=== PATIENT | female | born 1955 | race Caucasian/White ===

== ENCOUNTER 2017-04-13 23:07 | Observation (INO) | payer MEDICARE, MEDICAID ==
[~2017-04-13] VITALS: Ht 157.5 cm; Wt 126.0 kg
[~2017-04-13 23:07] MED LIST: ABILIFY5 MG PO; ADDERALL10 MG PO; BUPROPION300 MG PO; CALCIUM500 M1 OR; CIPROFLOXACN500 MG PO; FISH OIL300 MG OR; FLUOXETINE20 M2 PO; FUROSEMIDE40 MG PO; GLIPIZIDE5 M2 OR; LEVOTHYROXIN112 MC1 PO; METOPROL TAR50 MG PO; NEXIUM40 M1 PO; PROAIR HFA IN; STRESSTABS OR; TRAZODONE HCL100 MG OR; VITAMIN B 12 PO; ZOFRAN4 MG PO
[2017-04-13] MEDS ORDERED: CLONAZEPAM1 M1 PO (23:26)
[2017-04-13] MEDS ORDERED: GABAPENTIN400 M2 PO (23:30)
[2017-04-13] MEDS ORDERED: TIZANIDINE HCL4 MG PO (23:30)
--- NOTE | 2017-04-13 23:30 | NUR ---
EMS IV TO LAC REMOVED AT THIS TIME DUE TO LINE NON-FUNCTIONAL. BLEEDING CONTROLLED, DRESSING APPLIED.
[2017-04-13] MEDS ORDERED: PERCOCET 10/31 COMBO PO (23:31)
[2017-04-13] MEDS ORDERED: BUPROPION HCL300 MG PO (23:35)
[2017-04-13] MEDS ORDERED: PANTOPRAZOLE SO40 M1 PO (23:35)
[2017-04-13] MEDS ORDERED: TRAZODONE50 MG PO (23:36)
[2017-04-13] MEDS ORDERED: LANTUS SOL100 UNIT/M SC (23:37)
[2017-04-13] MEDS ORDERED: NOVOLOG FL100 UNIT/M (23:37)
[2017-04-13 23:50] LABS: HEMATOCRIT 39.1 % (37.0-47.0); HEMOGLOBIN 12.3 g/dl (12.0-16.0); IMMATURE GRANULOCYTES 0.1 % (0.0-1.0); MEAN CELL VOLUME 84.4 fL CALC (80.0-100.0); MEAN CORPUSCULAR HGB 26.6 pG CALC (26.0-32.0); MEAN CORPUSCULAR HGB CONC 31.5 g/L CALC (32.0-36.0); NEUT# 4.1 thou/uL (2.00-7.15); RED BLOOD COUNT 4.63 mill/uL (4.20-5.60); RED CELL DISTRI WIDTH 14.8 % (11.5-15.5)
--- NOTE | 2017-04-13 23:51 | NUR ---
DR. HOFFMAN AT BEDSIDE AT THIS TIME TO ASSESS PT.
[2017-04-14 00:10] LABS: ALBUMIN 3.7 g/dL (3.2-5.0); ALKALINE PHOSPHATASE 104 u/l (38-126); AMYLASE 32 u/l (30-110); ANION GAP 17 (6-22 (CALC)); BILIRUBIN, TOTAL 0.3 mg/dL (0.0-1.4); BUN 17 mg/dL (7-17); BUN/CREATININE RATIO 19 (12-20 (CALC)); CALCIUM 9.1 mg/dL (8.4-10.2); CARBON DIOXIDE 28 mmol/l (22-30); CHLORIDE 98 mmol/l (95-108); CREATININE 0.9 mg/dL (0.5-1.0); GFR > 60 ML/MIN (>=60 (CALC)); GFR FOR AFR.AMER. > 60 ML/MIN (>=60 (CALC)); GLUCOSE 225 mg/dL (65-105); LIPASE 132 u/l (23-300); POTASSIUM 3.8 mmol/l (3.5-5.1); SGOT/AST 48 u/l (14-36); SGPT/ALT 45 u/l (9-52); SODIUM 139 mmol/l (137-146)
[2017-04-14 00:22] LABS: MYOGLOBIN 38 ng/mL (0 - 62)
--- NOTE | 2017-04-14 00:25 | NUR ---
PT. STATES WITH MILD PAIN 3/10 AT THIS TIME. SP02 IS 91-93% ON RA. PLACED ON 2L NC. SPO2 INCREASES TO 95-96%.
--- NOTE | 2017-04-14 01:10 | NUR ---
REPORT TO LIYA MENDIETA.
--- NOTE | 2017-04-14 01:20 | NUR ---
PT. TAKEN UP TO MED/SURG AT THIS TIME.
[2017-04-14 01:25] VITALS: BP 159/89
--- NOTE | 2017-04-14 01:25 | NUR ---
PT TRANSFERRED TO FLOOR AT THIS TIME VIA STRETCHER IN STABLE CONDITION ACCOMPANIED BY DWAIN CHACON;PT AMBULATED TO STANDING SCALE AND BEDSIDE WITH WEAK GAIT;VS OBTAINED;PT COMPLAINS OF BACK AND LEG PAIN RATING 4/10 ON THE PAIN SCALE AND REQUEST PRN PAIN MEDICATION;PT TO BE MEDICATED ACCORDINGLY PER MD ORDERS;ASSESSMENT COMPLETED;IV SITE TO RFA FLUSHED AND PATENT;TELE MONITOR IN PLACE;02 ON @ 2 LITERS VIA NC;RESPIRATIONS EVEN AND UNLABORED;PT REPORTS LAST BM ON 04/13;1+ PITTING EDEMA NOTED TO BLE;LEGS ELEVATED WITH A PILLOW AT THIS TIME;CELLULITIS ALSO TO BLE;PT ORIENTED TO ROOM AND CALL LIGHT SYSTEM AND VERBALIZES UNDERSTANDING;PT DENIES ANY OTHER NEEDS AT THIS TIME;PT EDUCATED TO CALL FOR ASSISTANCE IF NEEDED;SAFETY PRECAUTIONS REINFORCED;BED IN LOWEST POSITION WITH CALL LIGHT IN REACH;WILL CONTINUE TO MONITOR
[2017-04-14 03:25] VITALS: BP 145/80
--- NOTE | 2017-04-14 05:53 | NUR ---
PT RESTING AT BEDSIDE AT THIS TIME;PT DENIES ANY PAINS OR DISCOMFORTS;02 ON @ 2 LITERS VIA NC,RESPIRATIONS EVEN AND UNLABORED;PT REPORTS BM,UNABLE TO COLLECT UA AT THIS TIME;TELE MONITOR IN PLACE;PT DENIES ANY OTHER NEEDS;BED IN LOWEST POSITION WITH CALL LIGHT IN REACH;WILL CONTINUE TO MONITOR
[2017-04-14 06:47] LABS: ANION GAP 16 (6-22 (CALC)); BUN 14 mg/dL (7-17); BUN/CREATININE RATIO 17 (12-20 (CALC)); CALCIUM 9.1 mg/dL (8.4-10.2); CALCULATED LDLCHOLESTEROL 79 mg/dL (62-129 (CALC)); CARBON DIOXIDE 29 mmol/l (22-30); CHLORIDE 100 mmol/l (95-108); CREATININE 0.8 mg/dL (0.5-1.0); GFR > 60 ML/MIN (>=60 (CALC)); GFR FOR AFR.AMER. > 60 ML/MIN (>=60 (CALC)); GLUCOSE 227 mg/dL (65-105); HDL CHOLESTEROL 40 mg/dL (>=40); MAGNESIUM 1.9 mg/dL (1.6-2.3); POTASSIUM 4.1 mmol/l (3.5-5.1); SODIUM 140 mmol/l (137-146); TOTAL CHOLESTEROL 178 mg/dl (0-199); TRIGLYCERIDES REFLEX TO dLDL 295 mg/dl (30-149); VLDL CHOLESTROL 59 mg/dl (2-49 (CALC))
--- NOTE | 2017-04-14 07:00 | NUR ---
RECEIVED CARMEN ZAPATA FROM [facility]. RESTING IN BED WITH EYES CLOSED, AWAKENS EASILY. RESPS EVEN AND UNLABORED ON ROOM AIR, TELE MONITOR IN PLACE. BILAT LOWER EXTREMITIES MILDLY RED ELEVATED ON PILLOW, DENIES PAIN OR DISCOMFORT. PLAN OF CARE DISCUSSED. SAFETY PRECAUTIONS REINFORCED. BED IN LOWEST POSITION WITH WHEELS LOCKED. CALL LIGHT WITHIN REACH. WILL CONTINUE TO MONITOR.
[2017-04-14 07:59] VITALS: BP 135/75
--- NOTE | 2017-04-14 08:10 | NUR ---
AM MEDICATIONS ADMINISTERED. REFUSES FLUOXETINE, REPORTS SHE NO LONGER TAKES THIS MEDICATION SHE NOW TAKES WELLBUTRIN.
[2017-04-14 11:15] LABS: BARBITURATES NEGATIVE (NEGATIVE); COCAINE NEGATIVE (NEGATIVE); METHADONE NEGATIVE (NEGATIVE); OXCYCODONE POSITIVE (NEGATIVE); TETRAHYDROCANNABIONOL NEGATIVE (NEGATIVE); TRICYLIC ANTIDEPRESSANTS NEGATIVE (NEGATIVE)
--- NOTE | 2017-04-14 13:55 | NUR ---
DR ROSARIO IN TO SEE PT, NEW ORDERS RECEIVED.
[2017-04-14] MEDS ORDERED: DOXYCYCL HYC100 MG PO (13:58)
[2017-04-14 14:50] VITALS: BP 153/94
--- NOTE | 2017-04-14 15:40 | NUR ---
Discharge instructions given. Patient verbalizes understanding of same. Discharged in stable condition via Wheelchair to Home with family. All belongings sent with pt.
[2017-04-14] MEDS ORDERED: ASPIRIN ADULT L81 M2 PO (16:14)
== END 2017-04-14 15:41 | disposition home or self-care (01) ==
LOC: ENPENDDIS → ED 23:07 → ED-I 04-14 00:18 → ED 04-14 00:31 → MS2 04-14 00:32
PROVIDERS: Emergency Medicine; ADMIT Internal Medicine; ATTEND Internal Medicine
DX: R07.89 Other chest pain (principal); E11.65 Type 2 diabetes mellitus with hyperglycemia; I10 Essential (primary) hypertension; M79.7 Fibromyalgia; F41.9 Anxiety disorder, unspecified; F32.9 Major depressive disorder, single episode, unspecified; R60.0 Localized edema; R06.02 Shortness of breath; Z79.4 Long term (current) use of insulin; Z79.899 Other long term (current) drug therapy

== ENCOUNTER 2017-12-28 20:43 | Emergency (ER) | payer MEDICARE, MEDICAID ==
[~2017-12-28] VITALS: Ht 157.5 cm; Wt 115.0 kg
[~2017-12-28 20:43] MED LIST changes: +ASPIRIN ADULT L81 M2 PO; +BUPROPION HCL300 MG PO; +CLONAZEPAM1 M1 PO; +DOXYCYCL HYC100 MG PO; +GABAPENTIN400 M2 PO; +LANTUS SOL100 UNIT/M SC; +NOVOLOG FL100 UNIT/M; +PANTOPRAZOLE SO40 M1 PO; +PERCOCET 10/31 COMBO PO; +TIZANIDINE HCL4 MG PO; +TRAZODONE50 MG PO
[2017-12-28] MEDS ORDERED: MEDDOSEPAK PO (23:20)
[2017-12-28 23:36] VITALS: BP 133/72
== END 2017-12-28 23:36 | disposition home or self-care (01) ==
LOC: ED 20:43
DX: G89.29 Other chronic pain (principal); M54.5 Low back pain

== ENCOUNTER 2018-02-24 12:18 | Emergency (ER) | payer MEDICARE, MEDICAID ==
[~2018-02-24] VITALS: Ht 157.5 cm; Wt 97.7 kg
[~2018-02-24 12:18] MED LIST changes: +MEDDOSEPAK PO
[2018-02-24 13:21] LABS: HEMATOCRIT 40.4 % (37.0-47.0); HEMOGLOBIN 13.2 g/dl (12.0-16.0); IMMATURE GRANULOCYTES 0.2 % (0.0-1.0); MEAN CELL VOLUME 84.5 fL CALC (80.0-100.0); MEAN CORPUSCULAR HGB 27.6 pG CALC (26.0-32.0); MEAN CORPUSCULAR HGB CONC 32.7 g/L CALC (32.0-36.0); NEUT# 5.52 thou/uL (2.00-7.15); RED BLOOD COUNT 4.78 mill/uL (4.20-5.60); RED CELL DISTRI WIDTH 14.3 % (11.5-15.5)
[2018-02-24 13:31] LABS: ANION GAP 20 (6-22 (CALC)); BUN 14 mg/dL (7-17); BUN/CREATININE RATIO 17 (12-20 (CALC)); CARBON DIOXIDE 28 mmol/l (22-30); CHLORIDE 94 mmol/l (95-108); CREATININE 0.8 mg/dL (0.5-1.0); GFR > 60 ML/MIN (>=60 (CALC)); GFR FOR AFR.AMER. > 60 ML/MIN (>=60 (CALC)); LIPASE 123 u/l (23-300); POTASSIUM 4.1 mmol/l (3.5-5.1); SODIUM 139 mmol/l (137-146)
[2018-02-24 13:52] LABS: URINE BILIRUBIN - DIPSTICK NEGATIVE (NEGATIVE); URINE BLOOD DIPSTICK TRACE-INTACT (NEGATIVE); URINE COLOR YELLOW; URINE GLUCOSE - DIPSTICK >=1000 mg/dL (NEGATIVE); URINE KETONE NEGATIVE (NEGATIVE); URINE LEUK ESTERASE NEGATIVE (NEGATIVE); URINE NITRITE - DIPSTICK NEGATIVE (Negative); URINE PROTEIN - DIPSTICK NEGATIVE (NEG-TRACE); URINE SPECIFIC GRAVITY <=1.005; URINE UROBILINOGEN - DIPSTICK 0.2 E.U./dL (0.2)
[2018-02-24 13:53] LABS: URINE CLARITY CLEAR
[2018-02-24 15:25] VITALS: BP 108/58
== END 2018-02-24 15:25 | disposition home or self-care (01) ==
LOC: ED 12:18
PROVIDERS: Family Medicine
DX: E11.65 Type 2 diabetes mellitus with hyperglycemia (principal); M79.7 Fibromyalgia; I10 Essential (primary) hypertension; F32.9 Major depressive disorder, single episode, unspecified; F43.10 Post-traumatic stress disorder, unspecified

== ENCOUNTER 2018-11-19 00:05 | Inpatient (IN) | payer MEDICARE, MEDICAID ==
[~2018-11-19] VITALS: Ht 157.5 cm; Wt 111.0 kg
[~2018-11-19 00:05] MED LIST changes: -NOVOLOG FL100 UNIT/M; +NOVOLOG FL100 UNIT/M SC
--- NOTE | 2018-11-19 00:05 | NUR ---
PT TO ROOM 9 BY EMS FOR UPPER ABDOMINAL PAIN
[2018-11-19] MEDS ORDERED: FLEXERIL5 MG PO (00:25)
[2018-11-19] MEDS ORDERED: TALTZ80 MG/M1 SC (00:50)
[2018-11-19 01:03] LABS: HEMATOCRIT 39.6 % (37.0-47.0); HEMOGLOBIN 12.4 g/dl (12.0-16.0); IMMATURE GRANULOCYTES 0.3 % (0.0-5.0); MEAN CELL VOLUME 82.8 fL CALC (80.0-100.0); MEAN CORPUSCULAR HGB 25.9 pG CALC (26.0-32.0); MEAN CORPUSCULAR HGB CONC 31.3 g/L CALC (32.0-36.0); NEUT# 9.44 thou/uL (2.00-7.15); RED BLOOD COUNT 4.78 mill/uL (4.20-5.60); RED CELL DISTRI WIDTH 15.4 % (11.5-15.5)
[2018-11-19 01:04] LABS: URINE BILIRUBIN - DIPSTICK NEGATIVE (NEGATIVE); URINE BLOOD DIPSTICK TRACE-INTACT (NEGATIVE); URINE COLOR YELLOW; URINE GLUCOSE - DIPSTICK NEGATIVE (NEGATIVE); URINE KETONE NEGATIVE (NEGATIVE); URINE LEUK ESTERASE MODERATE (NEGATIVE); URINE NITRITE - DIPSTICK NEGATIVE (Negative); URINE PROTEIN - DIPSTICK 30 mg/dL (NEG-TRACE); URINE UROBILINOGEN - DIPSTICK 0.2 E.U./dL (0.2)
[2018-11-19 01:05] LABS: URINE BACTERIA FEW hpf; URINE EPITHELIAL CELLS MODERATE EPI/hpf (0-FEW); URINE RBC 0-2 RBC/hpf (0-5)
--- NOTE | 2018-11-19 01:09 | NUR ---
BLOOD AND URINE IN PROGRESS, XRAY TAKEN AT BEDSIDE AND PT MEDICATED PER ORDER. WAITING ON RESULTS. PT DID STATE IT HURTS WHEN SHE URINATES. NOT BURN BUT PAINFUL. PT STATES SHE THINKS IT IS A SIDE EFFECT OF THE TALTZ MEDICATION SHE IS TAKING. DAUGHTER TOLD PT THE SYMPTOMS PT IS HAVING NOW ARE ALSO SIDE EFFECTS. PT'S DAUGHTER HAS TALTZ MEDICATION PAMPHLET AND SHE IS READING IT.
[2018-11-19 01:16] LABS: ALBUMIN 3.9 g/dL (3.2-5.0); ALKALINE PHOSPHATASE 101 u/l (38-126); AMYLASE 46 u/l (30-110); ANION GAP 16 (6-22 (CALC)); BILIRUBIN, TOTAL 0.5 mg/dL (0.0-1.4); BUN 13 mg/dL (8-23); BUN/CREATININE RATIO 19 (12-20 (CALC)); CARBON DIOXIDE 28 mmol/l (22-30); CHLORIDE 99 mmol/l (95-108); CREATININE 0.7 mg/dL (0.5-1.0); GFR > 60 ML/MIN (>=60 (CALC)); GFR FOR AFR.AMER. > 60 ML/MIN (>=60 (CALC)); LIPASE 86 u/l (23-300); POTASSIUM 4.2 mmol/l (3.5-5.1); SGOT/AST 38 u/l (9-36); SODIUM 139 mmol/l (137-146); TOTAL PROTEIN 7.4 g/dL (6.3-8.2)
--- NOTE | 2018-11-19 02:02 | NUR ---
PT ON SECOND DOSE OF CONTRAST. MEDICATED WITH COMPAZINE AND FENTANYL.
--- NOTE | 2018-11-19 02:25 | NUR ---
DAUGHTER CAME OUT STATING PT DRANK LAST OF CONTRAST. CALLED MICHAEL IN CT AND PT WILL GO DOWN IN 1 HOUR
--- NOTE | 2018-11-19 03:25 | NUR ---
PT TOLERATED ALL CONTRAST. WAITING FOR SCAN. TECH BUSY WITH CODE AT THIS TIME.
--- NOTE | 2018-11-19 03:45 | NUR ---
PT TO CT
--- NOTE | 2018-11-19 04:09 | NUR ---
PT BACK FROM CT AND PAIN FREE AT THIS TIME.
--- NOTE | 2018-11-19 04:34 | NUR ---
DR HANCOCK IN TO GO OVER RESULTS.
--- NOTE | 2018-11-19 04:38 | NUR ---
PER DOCTOR KARISSA, PT CHAIN BUILDER LOOM CONTROL WITH PALPATION. CALL OUT TO PT'S SURGEON
--- NOTE | 2018-11-19 05:30 | NUR ---
Admission Note Report Given to: DWAIN PEACE Transported by: Wheelchair X Stretcher Transported with: X Nurse Transporter X Patent IV O2 Transit Operator
--- NOTE | 2018-11-19 05:30 | NUR ---
NGT PLACED-REPORT GIVEN TO DWAIN PEACE. UPON ARRIVING ON FLOOR NATA REQUESTED DR. HANCOCK CHANGE PAIN MEDICATION FROM FENTANYL
[2018-11-19 05:43] VITALS: BP 180/85
--- NOTE | 2018-11-19 06:00 | NUR ---
PATIENT ADMITTED FROM ER VIA STRETCHER WITH ER STAFF IN ATTENDANCE. PATIENT ASSISTED FROM STRETCHER TO BED USING CANE. PATIENT IS AWAKE BUT SOMEWHAT DROWSY FROM ER MEDS. DAUGHTER HE HERE AT BEDSIDE TO ASSIST AND ANSWER QUESTIONS. PATIENT IS ALERT AND ORIENTEDX3. PATIENT STATES THAT SHE WASN'T FEELING WELL YESTERDAY AND LAST NIGHT AFTER EATING SPAGETTI SHE BECAME NAUSEATED AND VOMITTED-PATIENT LIVES WITH ELDERLY MOTHER AND EMS WAS CALLED. ABD IS DISTENDED BUT SOFT WITH ACTIVE BS. LAST BM WAS 11/18 AM. NGTUBE TO LEFT NARE IN PLACE. PLACEMENT WAS CHECKED AND TUBE WAS PLACED ON LIWS-DRAINING SMALL AMT OF BEIGE COLORED FLUID. IV SITE TO LEFT AC INTACT AND IVF LR HUNG AND INFUSING AT 150CC/HR. PATIENT WITH HX OF COLON RESECTION 09/11/18 AT [facility] PER PATIENT DAUGHTER HE. PATIENT WITH 4 SCAR RO ABD FROM SURGERY-HEALING WITH NO S/S OF INFECTION AT THIS TIME. PATIENT WITH H/O MRSA AND SWAB OBTAINED-PATIENT PLACE ON CONTACT FOR H/O MRSA AND PATIENT AND FAMILY INFORMED OF PRECAUTIONS. PATIENT IS NPO AT THIS TIME. PATIENT ORIENTED TO ROOM AND SURROUNDINGS. FALL PRECAUTIONS REVIEWED WITH PATIENT AND FAMILY. INSTRUCTED ON USE OF NURSE CALL LIGHT, TV REMOTE AND TELEPHONE. CALL LIGHT IN REACH. WILL CONT TO MONITOR.
[2018-11-19 06:35] VITALS: BP 174/92
--- NOTE | 2018-11-19 07:00 | NUR ---
PATIENT RESTING IN BED. MEDICATED FOR PAIN AND NAUSEA. MORPHINE 4MG AND ZOFRAN 4MG IVP ORDERED. REPORT GIVEN TO KENNA. CALL LIGHT IN REACH. WILL CONT TO MONITOR.
--- NOTE | 2018-11-19 07:22 | NUR ---
ENTERED ROOM AND INTRODUCED SELF TO PT, NGT TO R NARE TO LIS. NOTED FLUID IN TUBING AND CANISTER; YELLOW WITH FOOD PARTICLES. IVF TO EMS SITE IN LAC INFUSING WITHOUT DIFFICULTIES; NO REDNESS OR IRRITATION NOTED TO SITE. DISCUSSED POC, PT IN AGREEMENT. ASSISTED PT TO BSC VOIDED 200 CLEAR YELLOW URINE. NOTED SMALL AREA TO R HIP NOT OPEN OR DRAINING; REDDENED AND SCABBED. ASSISTED PT BACK IN BED, CALL LIGHT IN REACH,CONTINUE TO MONITOR.
[2018-11-19 08:30] VITALS: BP 165/78
--- NOTE | 2018-11-19 08:52 | NUR ---
PT ASSISTED BACK IN BED FROM [facility], PT HAD A LARGE SOFT BROWN BM WITH SOME WATERY BROWN STOOL WELL. PT IS PASSING GAS. CALL LIGHT IN REACH,CONTINUE TO MONITOR.
--- NOTE | 2018-11-19 09:00 | NUR ---
IN TO SEE PT, DISCUSSED POC, ORDERS TO CHANGE IVF AND START NOVOLOG COVERAGE, WILL KEEP NPO. TO SEE PT, CONSULTED BY .
[2018-11-19 09:34] LABS: HEMATOCRIT 39.2 % (37.0-47.0); HEMOGLOBIN 12.3 g/dl (12.0-16.0); IMMATURE GRANULOCYTES 0.3 % (0.0-5.0); MEAN CELL VOLUME 83.6 fL CALC (80.0-100.0); MEAN CORPUSCULAR HGB 26.2 pG CALC (26.0-32.0); MEAN CORPUSCULAR HGB CONC 31.4 g/L CALC (32.0-36.0); NEUT# 7.61 thou/uL (2.00-7.15); RED BLOOD COUNT 4.69 mill/uL (4.20-5.60); RED CELL DISTRI WIDTH 15.7 % (11.5-15.5)
[2018-11-19 09:53] LABS: ANION GAP 14 (6-22 (CALC)); BUN 14 mg/dL (8-23); BUN/CREATININE RATIO 20 (12-20 (CALC)); CARBON DIOXIDE 28 mmol/l (22-30); CHLORIDE 101 mmol/l (95-108); CREATININE 0.7 mg/dL (0.5-1.0); GFR > 60 ML/MIN (>=60 (CALC)); GFR FOR AFR.AMER. > 60 ML/MIN (>=60 (CALC)); POTASSIUM 4.4 mmol/l (3.5-5.1); SODIUM 139 mmol/l (137-146)
--- NOTE | 2018-11-19 11:10 | NUR ---
TO SEE PT, NEW ORDERS TO DC' NGT AND START CLEAR LIQUID DIET. PT IN AGREEMENT. CALL LIGHT IN REACH,CONTINUE TO MONITOR.
--- NOTE | 2018-11-19 11:25 | NUR ---
ENTERED ROOM WITH LUNCH, DISCUSSED NGT REMOVAL, PT IN AGREEMENT. NGT REMOVED, CATHETER INTACT PT TOLERATED WELL. LUNCH PLACED FOR PT ON TRAY. INSTRUCTED TO CALL IF NEEDED. CALL LIGHT IN REACH,CONTINUE TO MONITOR.
--- NOTE | 2018-11-19 12:59 | NUR ---
PT TOLERATED CLEAR LIQUIDS. NO C/O N/V, CALL LIGHT IN REACH,CONTINUE TO MONITOR.
--- NOTE | 2018-11-19 16:26 | NUR ---
BP 175/76 HR 93, PT C/O PAIN TO L SHOULDER AND ABD 5/10 MEDICATED PT WITH MORPHINE. WELL RETURN TO REASSESS PAIN AND BP. CALL LIGHT IN REACH,CONTINUE TO MONITOR.
[2018-11-19 16:33] VITALS: BP 177/83
[2018-11-19 17:15] VITALS: BP 130/65
[2018-11-19 20:21] VITALS: BP 137/77
--- NOTE | 2018-11-19 21:45 | NUR ---
PT RESTING IN BED WATCHING TV. PT IS PLEASANT C/ O SHOULDER PAIN, MEDICATED PER ORDER. ASSESMENT COMPLETED AT THIS TIME. LUNG SOUNDS DIMINISHED, HEART SOUNDS NORMAL, ACTIVE BOWELS SOUNDS, TRACE EDEMA TO LEGS BILAT. 4 HEALING INSICIONS TO ABD, SMALL SCABBED RED AREA TO HIP, EXCORIATION AND ODOR TO ABD FOLD. IV INFUSING WELL. PT HAS NO OTHER NEEDS AT THIS TIME. CALL DICK IN REACH. WILL CONTINUE TO MONITOR.
[2018-11-20 00:23] VITALS: BP 135/75
--- NOTE | 2018-11-20 03:05 | NUR ---
PT STANDING AT BED SIDE, CANNOT GET COMFORTABLE. OFFERED TO GET INTO THE RECLINER PT ACCEPTS AND APRECIATIVE. PT SETTLED INTO THE RECLINER. NO OTHER COMPLAINTS AT THIS TIME. CALL DICK IN REACH. WILL CONTINUE TO MONITOR.
--- NOTE | 2018-11-20 04:00 | NUR ---
PT UNCOMFORTABLE AND C/O HEADACHE. ICE PACK OFFERED TO PT. LIGHTS DOWN LOW. CALL DICK IN REACH. WILL CONTINUE TO MONITOR.
[2018-11-20 04:58] VITALS: BP 156/92
[2018-11-20 04:58] LABS: HEMOGLOBIN 11.1 g/dl (12.0-16.0); IMMATURE GRANULOCYTES 0.4 % (0.0-5.0); MEAN CELL VOLUME 84.9 fL CALC (80.0-100.0); MEAN CORPUSCULAR HGB 26.2 pG CALC (26.0-32.0); MEAN CORPUSCULAR HGB CONC 30.8 g/L CALC (32.0-36.0); NEUT# 4.72 thou/uL (2.00-7.15); RED BLOOD COUNT 4.24 mill/uL (4.20-5.60); RED CELL DISTRI WIDTH 15.7 % (11.5-15.5)
[2018-11-20 05:28] LABS: ALBUMIN 3.2 g/dL (3.2-5.0); ALKALINE PHOSPHATASE 71 u/l (38-126); ANION GAP 12 (6-22 (CALC)); BILIRUBIN, TOTAL 0.5 mg/dL (0.0-1.4); BUN 10 mg/dL (8-23); BUN/CREATININE RATIO 16 (12-20 (CALC)); CARBON DIOXIDE 28 mmol/l (22-30); CHLORIDE 102 mmol/l (95-108); CREATININE 0.6 mg/dL (0.5-1.0); GFR > 60 ML/MIN (>=60 (CALC)); GFR FOR AFR.AMER. > 60 ML/MIN (>=60 (CALC)); MAGNESIUM 1.9 mg/dL (1.6-2.3); POTASSIUM 4.4 mmol/l (3.5-5.1); SGOT/AST 33 u/l (9-36); SODIUM 137 mmol/l (137-146); TOTAL PROTEIN 6.4 g/dL (6.3-8.2)
[2018-11-20 08:28] VITALS: BP 173/88
--- NOTE | 2018-11-20 08:50 | NUR ---
PT SITTING UP IN BED TRYING TO EAT BREAKFAST;PT A/OX3; PT STATED HER HEAD, STOMACH AND SHOULDER HURTS 9/10 PAIN SCALE; MEDICATED WITH MORPHINE; ASSITED PT TO BSC, PT WALKED WITH STEADY BUT SLOW GAIT; VOIDED 800CC, YELLOW, CLEAR URINE; PT VOICED NO OTHER CONCERNS; POC DISCUSSED; CALL DICK IN REACH; PT INSTRUCTED TO CALL FOR ASSISTEANCE; WILL CONTINUE TO MONITOR.
--- NOTE | 2018-11-20 10:50 | NUR ---
DR LEWIS AT BEDSIDE TO DISCUSS POC
--- NOTE | 2018-11-20 11:10 | NUR ---
PT LAYING IN BED, RESP EVEN AND UNLBORED; STATED THAT THE PAIN MEDICATION HAS HELPED; POSSIBLE DC TODAY; DR LEWIS ORDER IVF STOPPED. CALL DICK IN REACH;
--- NOTE | 2018-11-20 12:40 | NUR ---
PT SITTING UP IN RECLINER TALKING ON THE PHONE; NO S/S OF DISTRESS NOTED; CALL DICK IN REACH.
--- NOTE | 2018-11-20 13:15 | NUR ---
FINISH LAST DOES OF GASTROGRAFIN; PT TOLERATE WELL; VOICE NO CONCERNS; RADIOLOGY INFORMED EXT 440;
--- NOTE | 2018-11-20 14:05 | NUR ---
PT GOING TO CAT/SCAN VIA W/C, ACCOMPANIED BY DIRECTOR HARDWARE, PENA PASS GIVEN TO DIRECTOR HARDWARE.
--- NOTE | 2018-11-20 14:15 | NUR ---
PT BACK FROM TEST VIA W/C ACCOMPANIED BY LANGUAGE PATH; PT STATED HAD MULTIPLE BOWEL MOVEMENTS. NO S/S OF DISTRESS NOTED.
--- NOTE | 2018-11-20 15:43 | NUR ---
PT SITTING UP IN RECLINER; COMPLAINE OF NO PAIN; RESP EVEN AND UNLABORED; NO S/S OF DISTRESS NOTED; PT INDIPENDENT IN ROOM; CALL DICK IN REACH.
[2018-11-20 15:50] VITALS: BP 149/61
[2018-11-20] MEDS ORDERED: TRAMADOL HYDROC50 MG PO (16:07)
--- NOTE | 2018-11-20 16:46 | NUR ---
DC INSTRUCTIONS GIVEN TO PT; PT VERBALIZED UNDERSTANDING; PT WAITING FOR HER RIDE; INSTRUCT PT TO CALL WHEN HER RIDE GETS HERE.
--- NOTE | 2018-11-20 17:27 | NUR ---
Discharge instructions given. Patient verbalizes understanding of same. Discharged in stable condition via Wheelchair to Home with family. All belongings sent with pt.
== END 2018-11-20 17:30 | disposition home or self-care (01) | DRG 390 ==
LOC: ED 00:05 → ED-I 04:41 → ED 04:58 → MS2 04:59
PROVIDERS: Internal Medicine Nephrology; ADMIT Family Medicine; ATTEND Family Medicine
DX: K56.600 Partial intestinal obstruction, unspecified as to cause (principal); I10 Essential (primary) hypertension; M79.7 Fibromyalgia; E03.9 Hypothyroidism, unspecified; I34.1 Nonrheumatic mitral (valve) prolapse; F31.9 Bipolar disorder, unspecified; E11.40 Type 2 diabetes mellitus with diabetic neuropathy, unspecified; K21.9 Gastro-esophageal reflux disease without esophagitis; G58.8 Other specified mononeuropathies; Z79.891 Long term (current) use of opiate analgesic; Z79.4 Long term (current) use of insulin; Z90.49 Acquired absence of other specified parts of digestive tract
CPT/HCPCS: J1650; Q9967

== ENCOUNTER 2018-12-08 08:56 | Emergency (ER) | payer MEDICARE, MEDICAID ==
[~2018-12-08] VITALS: Ht 157.5 cm; Wt 110.0 kg
[~2018-12-08 08:56] MED LIST changes: +FLEXERIL5 MG PO; +TALTZ80 MG/M1 SC; +TRAMADOL HYDROC50 MG PO
[2018-12-08 10:11] LABS: HEMOGLOBIN 12.8 g/dl (12.0-16.0); IMMATURE GRANULOCYTES 0.4 % (0.0-5.0); MEAN CELL VOLUME 83.2 fL CALC (80.0-100.0); MEAN CORPUSCULAR HGB CONC 31.2 g/L CALC (32.0-36.0); NEUT# 7.32 thou/uL (2.00-7.15); RED BLOOD COUNT 4.93 mill/uL (4.20-5.60); RED CELL DISTRI WIDTH 15.6 % (11.5-15.5)
[2018-12-08 10:19] LABS: ALBUMIN 4.2 g/dL (3.2-5.0); ALKALINE PHOSPHATASE 103 u/l (38-126); ANION GAP 18 (6-22 (CALC)); BILIRUBIN, TOTAL 0.4 mg/dL (0.0-1.4); BUN 15 mg/dL (8-23); BUN/CREATININE RATIO 20 (12-20 (CALC)); CARBON DIOXIDE 29 mmol/l (22-30); CHLORIDE 100 mmol/l (95-108); CREATININE 0.8 mg/dL (0.5-1.0); GFR > 60 ML/MIN (>=60 (CALC)); GFR FOR AFR.AMER. > 60 ML/MIN (>=60 (CALC)); POTASSIUM 4.6 mmol/l (3.5-5.1); SGOT/AST 36 u/l (9-36); SODIUM 142 mmol/l (137-146); TOTAL PROTEIN 7.8 g/dL (6.3-8.2)
[2018-12-08 10:59] LABS: URINE BILIRUBIN - DIPSTICK NEGATIVE (NEGATIVE); URINE BLOOD DIPSTICK MODERATE (NEGATIVE); URINE COLOR YELLOW; URINE GLUCOSE - DIPSTICK NEGATIVE (NEGATIVE); URINE KETONE NEGATIVE (NEGATIVE); URINE NITRITE - DIPSTICK NEGATIVE (Negative); URINE PROTEIN - DIPSTICK 100 mg/dL (NEG-TRACE); URINE SPECIFIC GRAVITY 1.025; URINE UROBILINOGEN - DIPSTICK 0.2 E.U./dL (0.2)
[2018-12-08 11:02] LABS: URINE LEUK ESTERASE SMALL (NEGATIVE)
[2018-12-08 11:05] LABS: URINE BACTERIA MANY hpf; URINE EPITHELIAL CELLS MANY EPI/hpf (0-FEW)
[2018-12-08] MEDS ORDERED: HUMALOG KW100 UNIT/M SC (11:19)
[2018-12-08] MEDS ORDERED: TORADOL PO (11:38)
[2018-12-08] MEDS ORDERED: KEFLEX500 M1 PO (11:38)
[2018-12-08] MEDS ORDERED: TAMSULOSIN0.4 MG PO (11:38)
[2018-12-08] MEDS ORDERED: PYRIDIUM200 MG PO (11:38)
[2018-12-08 12:34] VITALS: BP 165/84
== END 2018-12-08 12:35 | disposition home or self-care (01) ==
LOC: ED 08:56 → ED-I 11:18 → ED 12:35
PROVIDERS: Emergency Medicine
DX: N20.0 Calculus of kidney (principal); N39.0 Urinary tract infection, site not specified; B96.4 Proteus (mirabilis) (morganii) as the cause of diseases classified elsewhere; M19.90 Unspecified osteoarthritis, unspecified site; I11.0 Hypertensive heart disease with heart failure; E11.9 Type 2 diabetes mellitus without complications; F31.9 Bipolar disorder, unspecified; E03.9 Hypothyroidism, unspecified; M79.7 Fibromyalgia; F43.10 Post-traumatic stress disorder, unspecified; Z95.2 Presence of prosthetic heart valve; Z86.73 Personal history of transient ischemic attack (TIA), and cerebral infarction without residual deficits

== ENCOUNTER 2019-11-30 11:37 | Observation (INO) | payer MEDICARE, MEDICAID ==
[~2019-11-30] VITALS: Ht 157.5 cm; Wt 108.6 kg
[~2019-11-30 11:37] MED LIST changes: +HUMALOG KW100 UNIT/M SC; +KEFLEX500 M1 PO; +PYRIDIUM200 MG PO; +TAMSULOSIN0.4 MG PO; +TORADOL PO
--- NOTE | 2019-11-30 11:38 | NUR ---
PT TO ROOM VIA EMS
--- NOTE | 2019-11-30 12:20 | NUR ---
D10%IV DRIP CONTINUED AT THIS TIME; VSS; PT AOX3; WILL CONTINUE TO MONITOR
[2019-11-30 12:53] LABS: HEMATOCRIT 38.9 % (37.0-47.0); HEMOGLOBIN 11.8 g/dl (12.0-16.0); IMMATURE GRANULOCYTES 0.4 % (0.0-5.0); MEAN CELL VOLUME 82.9 fL CALC (80.0-100.0); MEAN CORPUSCULAR HGB 25.2 pG CALC (26.0-32.0); MEAN CORPUSCULAR HGB CONC 30.3 g/L CALC (32.0-36.0); NEUT# 8.22 thou/uL (2.00-7.15); RED BLOOD COUNT 4.69 mill/uL (4.20-5.60); RED CELL DISTRI WIDTH 16.1 % (11.5-15.5)
--- NOTE | 2019-11-30 13:00 | NUR ---
IV DEXTROSE 10%INCREASED TO 100ML PER HOUR TO MAINTAIN BS; ACCUCHECK 106
[2019-11-30 13:47] LABS: BUN 13 mg/dL (8-23); BUN/CREATININE RATIO 19 (12-20 (CALC)); CHLORIDE 97 mmol/l (95-108); CREATININE 0.7 mg/dL (0.5-1.0); GFR > 60 ML/MIN (>=60 (CALC)); GFR FOR AFR.AMER. > 60 ML/MIN (>=60 (CALC)); POTASSIUM 4.3 mmol/l (3.5-5.1); SODIUM 139 mmol/l (137-146)
[2019-11-30 13:50] LABS: ANION GAP 11 (6-22 (CALC)); CARBON DIOXIDE 35 mmol/l (22-30)
--- NOTE | 2019-11-30 14:00 | NUR ---
PT SITTING UP ON STRETCHER; AOX3; NO S/S OF DISTRESS NOTED; VSS; WILL CONTNUE TO MONITOR
--- NOTE | 2019-11-30 14:28 | NUR ---
DEXTROSE INCREASED TO 250ML/ HR; BS 66; NOTIFIED; PT AOX 3; C/O NAUSEA AT THIS TIME; VSS; WILL CONTINUE TO MONITOR
[2019-11-30] MEDS ORDERED: KLOR-CON SPRIN10 MEQ PO (14:54)
[2019-11-30] MEDS ORDERED: LASIX 40 MG TAB40 MG PO (14:55)
--- NOTE | 2019-11-30 15:00 | NUR ---
PT BS 92 ON 250ML OF 10% DEXTROSE; DENIES ANY COMPLAINTS AT THIS TIME; VSS; WILL CONTINUE TO MONITOR
[2019-11-30] MEDS ORDERED: MYRBETRIQ25 MG PO (15:06)
[2019-11-30] MEDS ORDERED: TRULICITY0.75 MG/0. PO (15:08)
[2019-11-30] MEDS ORDERED: LIPITOR40 M1 PO (15:08)
[2019-11-30] MEDS ORDERED: TYLENOL500 MG PO (15:09)
[2019-11-30] MEDS ORDERED: ISOSORBIDE MONO30 MG PO (15:09)
[2019-11-30] MEDS ORDERED: SUPER B COM2 PO (15:10)
[2019-11-30] MEDS ORDERED: TURMERIC500 M1 PO (15:10)
[2019-11-30] MEDS ORDERED: ATIVAN0.5 MG PO (15:11)
[2019-11-30] MEDS ORDERED: SEA-OMEGA300 MG PO (15:11)
--- NOTE | 2019-11-30 16:00 | NUR ---
PT ASSISTED TO BR WITH STEADY GAIT; PT DENIES FEELING DIZZY OR LIGHT HEADED; BS RECHECK 122; WILL CONTINUE TO MONITOR
--- NOTE | 2019-11-30 17:05 | NUR ---
Admission Note Report Given to: DWAIN BEAR Transported by: Wheelchair X Stretcher Transported with: X Nurse Transporter X Patent IV O2 X Installers Mechanical Location: X ICU MS2
[2019-11-30 18:00] VITALS: BP 146/68
--- NOTE | 2019-11-30 18:00 | NUR ---
PT ARRIVES TO ICU-5 ALERT AND ORIENTED X 3. LUNGS CLEAR, RA. INITIAL BLOOD SUGAR 92. SUPPER BEEN SERVED, WHICH SHE IS EATING NOW. D5.45NS INFUSES AT 100 ML/HR.
[2019-11-30 19:30] VITALS: BP 139/65
--- NOTE | 2019-11-30 19:30 | NUR ---
sitting in bedside chair. denies distress. contact precautions initiated. mrsa swab collected & sent to lab. air twist operator shows sinus rhythm hr 83. #22 lt hand. d51/2ns infusing @ 100cchr. po fluids taken well. voids without diff. fall precautions cont. receiving notified of need for orange band.
--- NOTE | 2019-11-30 21:20 | NUR ---
ativan 0.5mg po per request for sleep.
[2019-11-30 22:15] VITALS: BP 147/61
--- NOTE | 2019-12-01 00:01 | NUR ---
eyes closed. no distress. locomotive mechanic shows sinus rhythm hr 78.
[2019-12-01 00:15] VITALS: BP 119/66
--- NOTE | 2019-12-01 01:00 | NUR ---
amb to br then back to beb. hu well.
--- NOTE | 2019-12-01 02:00 | NUR ---
eyes closed. no distress. groundwater monitoring technician shows sinus rhythm hr 70
--- NOTE | 2019-12-01 05:00 | NUR ---
lab here. blood drawn.
[2019-12-01 06:36] LABS: ANION GAP 12 (6-22 (CALC)); BUN 16 mg/dL (8-23); BUN/CREATININE RATIO 27 (12-20 (CALC)); CARBON DIOXIDE 29 mmol/l (22-30); CHLORIDE 100 mmol/l (95-108); CREATININE 0.6 mg/dL (0.5-1.0); GFR > 60 ML/MIN (>=60 (CALC)); GFR FOR AFR.AMER. > 60 ML/MIN (>=60 (CALC)); MAGNESIUM 1.8 mg/dL (1.6-2.3); POTASSIUM 4.5 mmol/l (3.5-5.1); SODIUM 137 mmol/l (137-146)
--- NOTE | 2019-12-01 07:10 | NUR ---
pt awake in recliner; no apparent distress noted; pt offers no complaints; assessment completed at this time; pt alert and oriented; denies pain; no n/v noted; resp even and unlabored; lungs clear; skin color wnl; ra; hr reg; strong pulses; no edema noted; sr on monitor; abd soft with bs present; no bm noted per consumer loan underwriter; pt admits to voiding without complication; no urine to inspect at this time; urinal at bedside; #22 in lh patent with ivf infusing without complication; no redness or edema noted at site; plan of care/ am meds explained; accucheck 135; call light within reach; will continue to monitor
--- NOTE | 2019-12-01 08:20 | NUR ---
awake in recliner; offers no complaints; sr on monitor; no apparent distress noted; will continue to monitor
--- NOTE | 2019-12-01 08:39 | NUR ---
Dr Holland present at bedside to assess pt and discuss plan of care
[2019-12-01 09:45] VITALS: BP 138/87
--- NOTE | 2019-12-01 09:45 | NUR ---
awake in recliner; offers no complaints; iv removed with cath tip intact; vss; pt awaiting discharge; will continue to monitor
[2020-05-19] MEDS ORDERED: ARIPIPRAZOLE2 MG PO (07:52)
[2020-05-19] MEDS ORDERED: CITALOPRAM40 M1 PO (07:52)
[2020-05-19] MEDS ORDERED: HYDROXYZINE HCL10 MG PO (07:53)
[2020-05-19] MEDS ORDERED: METOPROLOL TART50 MG PO (07:53)
[2020-05-19] MEDS ORDERED: NITROGLYCERIN0.4 MG (07:54)
[2020-05-19] MEDS ORDERED: TRAMADOL HCL50 MG PO (07:54)
[2020-05-19] MEDS ORDERED: D32000 UNIT PO (09:41)
[2020-05-19] MEDS ORDERED: [UNRECOGNIZED DRUG - OTHER] PO (09:41)
[2020-05-19] MEDS ORDERED: COMPLEX PO (09:41)
[2020-05-19] MEDS ORDERED: TYLENOL500 MG PO (09:42)
[2020-05-19] MEDS ORDERED: FISH OIL OMEGA-1 CAP PO (09:42)
[2020-05-19] MEDS ORDERED: DOCUSATE CAL240 MG PO (09:43)
[2020-05-19] MEDS ORDERED: TUMERIC PO (09:43)
[2020-05-19] MEDS ORDERED: MULTIVITAMIN GUMMIES PO (09:43)
[2020-08-26] MEDS ORDERED: METOPROLOL SUCC50 MG PO (11:32)
[2020-08-26] MEDS ORDERED: VITAMIN D32000 UNIT PO (11:33)
[2020-08-26] MEDS ORDERED: CLOTRIMAZOLE10 MG MT (11:34)
[2020-08-26] MEDS ORDERED: HYDROCO/APAP1 T13 PO (11:35)
[2020-08-26] MEDS ORDERED: BANOPHEN25 M1 PO (11:36)
== END 2019-12-01 10:24 | disposition home or self-care (01) ==
LOC: ED 11:37 → ED-I 13:51 → ED 14:04 → ICU 14:05
PROVIDERS: Family Medicine; Nurse Practitioner Family; ADMIT Internal Medicine; ATTEND Internal Medicine
DX: T38.3X1A Poisoning by insulin and oral hypoglycemic [antidiabetic] drugs, accidental (unintentional), initial encounter (principal); E11.649 Type 2 diabetes mellitus with hypoglycemia without coma; I10 Essential (primary) hypertension; I25.119 Atherosclerotic heart disease of native coronary artery with unspecified angina pectoris; E03.9 Hypothyroidism, unspecified; M79.7 Fibromyalgia; Z79.4 Long term (current) use of insulin; Z86.73 Personal history of transient ischemic attack (TIA), and cerebral infarction without residual deficits

== ENCOUNTER 2020-02-25 15:37 | Observation (INO) | payer MEDICARE, MEDICAID ==
[~2020-02-25] VITALS: Ht 157.5 cm; Wt 113.2 kg
[~2020-02-25 15:37] MED LIST changes: +ATIVAN0.5 MG PO; +ISOSORBIDE MONO30 MG PO; +KLOR-CON SPRIN10 MEQ PO; +LASIX 40 MG TAB40 MG PO; +LIPITOR40 M1 PO; +MYRBETRIQ25 MG PO; +SEA-OMEGA300 MG PO; +SUPER B COM2 PO; +TRULICITY0.75 MG/0. PO; +TURMERIC500 M1 PO; +TYLENOL500 MG PO
[2020-02-25 16:12] LABS: HEMATOCRIT 37.3 % (37.0-47.0); HEMOGLOBIN 11.3 g/dl (12.0-16.0); IMMATURE GRANULOCYTES 0.4 % (0.0-5.0); MEAN CELL VOLUME 82.2 fL CALC (80.0-100.0); MEAN CORPUSCULAR HGB 24.9 pG CALC (26.0-32.0); MEAN CORPUSCULAR HGB CONC 30.3 g/dL CAL (32.0-36.0); NEUT# 7.7 thou/uL (2.00-7.15); RED BLOOD COUNT 4.54 mill/uL (4.20-5.60); RED CELL DISTRI WIDTH 15.7 % (11.5-15.5)
[2020-02-25 16:27] LABS: ALBUMIN 4.2 g/dL (3.2-5.0); ALKALINE PHOSPHATASE 81 u/l (38-126); AMYLASE 78 u/l (30-110); ANION GAP 11 (6-22 (CALC)); BILIRUBIN, TOTAL 0.5 mg/dL (0.0-1.4); BUN 16 mg/dL (8-23); BUN/CREATININE RATIO 22 (12-20 (CALC)); CARBON DIOXIDE 32 mmol/l (22-30); CHLORIDE 98 mmol/l (95-108); CREATININE 0.7 mg/dL (0.5-1.0); GFR > 60 ML/MIN (>=60 (CALC)); GFR FOR AFR.AMER. > 60 ML/MIN (>=60 (CALC)); LIPASE 129 u/l (23-300); SGOT/AST 31 u/l (9-36); SODIUM 137 mmol/l (137-146); TOTAL PROTEIN 8.2 g/dL (6.3-8.2)
[2020-02-25 16:39] LABS: MYOGLOBIN 44 ng/mL (0 - 62)
[2020-02-25 18:00] VITALS: BP 122/78
[2020-02-25 18:07] LABS: URINE BILIRUBIN - DIPSTICK NEGATIVE (NEGATIVE); URINE BLOOD DIPSTICK MODERATE (NEGATIVE); URINE COLOR YELLOW; URINE GLUCOSE - DIPSTICK NEGATIVE (NEGATIVE); URINE KETONE NEGATIVE (NEGATIVE); URINE LEUK ESTERASE NEGATIVE (NEGATIVE); URINE NITRITE - DIPSTICK NEGATIVE (Negative); URINE PH 6.5 (4.5-8.0); URINE PROTEIN - DIPSTICK NEGATIVE (NEG-TRACE); URINE SPECIFIC GRAVITY 1.015; URINE UROBILINOGEN - DIPSTICK 0.2 E.U./dL (0.2)
[2020-02-25 18:10] LABS: URINE WBC 0-2 WBC/hpf (0-5)
[2020-02-26 00:11] VITALS: BP 118/67
[2020-02-26 04:00] VITALS: BP 116/78
[2020-02-26 05:45] LABS: CHOLESTEROL HDL RATIO 2.6 (<4.4 (CALC))
[2020-02-26 07:51] VITALS: BP 125/79
[2020-02-26 09:38] LABS: HEMATOCRIT 37.1 % (37.0-47.0); HEMOGLOBIN 11.3 g/dl (12.0-16.0); MEAN CELL VOLUME 83.4 fL CALC (80.0-100.0); MEAN CORPUSCULAR HGB 25.4 pG CALC (26.0-32.0); MEAN CORPUSCULAR HGB CONC 30.5 g/dL CAL (32.0-36.0); RED BLOOD COUNT 4.45 mill/uL (4.20-5.60); RED CELL DISTRI WIDTH 15.6 % (11.5-15.5)
[2020-02-26 11:00] VITALS: BP 131/81
[2020-02-26 15:00] VITALS: BP 119/69
[2020-05-19] MEDS ORDERED: CITALOPRAM40 M1 PO (07:52)
[2020-05-19] MEDS ORDERED: ARIPIPRAZOLE2 MG PO (07:52)
[2020-05-19] MEDS ORDERED: HYDROXYZINE HCL10 MG PO (07:53)
[2020-05-19] MEDS ORDERED: METOPROLOL TART50 MG PO (07:53)
[2020-05-19] MEDS ORDERED: TRAMADOL HCL50 MG PO (07:54)
[2020-05-19] MEDS ORDERED: NITROGLYCERIN0.4 MG (07:54)
[2020-05-19] MEDS ORDERED: D32000 UNIT PO (09:41)
[2020-05-19] MEDS ORDERED: COMPLEX PO (09:41)
[2020-05-19] MEDS ORDERED: [UNRECOGNIZED DRUG - OTHER] PO (09:41)
[2020-05-19] MEDS ORDERED: FISH OIL OMEGA-1 CAP PO (09:42)
[2020-05-19] MEDS ORDERED: TYLENOL500 MG PO (09:42)
[2020-05-19] MEDS ORDERED: TUMERIC PO (09:43)
[2020-05-19] MEDS ORDERED: DOCUSATE CAL240 MG PO (09:43)
[2020-05-19] MEDS ORDERED: MULTIVITAMIN GUMMIES PO (09:43)
[2020-08-26] MEDS ORDERED: METOPROLOL SUCC50 MG PO (11:32)
[2020-08-26] MEDS ORDERED: VITAMIN D32000 UNIT PO (11:33)
[2020-08-26] MEDS ORDERED: CLOTRIMAZOLE10 MG MT (11:34)
[2020-08-26] MEDS ORDERED: HYDROCO/APAP1 T13 PO (11:35)
[2020-08-26] MEDS ORDERED: BANOPHEN25 M1 PO (11:36)
== END 2020-02-26 17:28 | disposition home or self-care (01) ==
LOC: ED 15:37 → ED-I 16:39 → ED 16:47 → ED-I 16:48 → MS2 16:48
PROVIDERS: Emergency Medicine; Nurse Practitioner Family; ADMIT Internal Medicine; ATTEND Internal Medicine
DX: R07.9 Chest pain, unspecified (principal); I95.9 Hypotension, unspecified; I10 Essential (primary) hypertension; E11.9 Type 2 diabetes mellitus without complications; I34.1 Nonrheumatic mitral (valve) prolapse; E03.9 Hypothyroidism, unspecified; R31.0 Gross hematuria; E78.5 Hyperlipidemia, unspecified; K21.9 Gastro-esophageal reflux disease without esophagitis; K22.2 Esophageal obstruction; F43.10 Post-traumatic stress disorder, unspecified; M79.7 Fibromyalgia; F31.9 Bipolar disorder, unspecified; F41.9 Anxiety disorder, unspecified; B35.6 Tinea cruris; Z87.442 Personal history of urinary calculi; Z86.73 Personal history of transient ischemic attack (TIA), and cerebral infarction without residual deficits
CPT/HCPCS: G0378

== ENCOUNTER 2020-06-20 09:56 | Emergency (ER) | payer MEDICARE, MEDICAID ==
[~2020-06-20] VITALS: Ht 157.5 cm; Wt 100.0 kg
[~2020-06-20 09:56] MED LIST changes: +ARIPIPRAZOLE2 MG PO; +CITALOPRAM40 M1 PO; +COMPLEX PO; +D32000 UNIT PO; +DOCUSATE CAL240 MG PO; +FISH OIL OMEGA-1 CAP PO; +HYDROXYZINE HCL10 MG PO; +METOPROLOL TART50 MG PO; +MULTIVITAMIN GUMMIES PO; +NITROGLYCERIN0.4 MG; +TRAMADOL HCL50 MG PO; +TUMERIC PO; +[UNRECOGNIZED DRUG - OTHER] PO
[2020-06-20 10:46] LABS: URINE BILIRUBIN - DIPSTICK NEGATIVE (NEGATIVE); URINE BLOOD DIPSTICK TRACE-LYSED (NEGATIVE); URINE CLARITY CLEAR; URINE COLOR YELLOW; URINE GLUCOSE - DIPSTICK NEGATIVE (NEGATIVE); URINE KETONE NEGATIVE (NEGATIVE); URINE LEUK ESTERASE NEGATIVE (Negative); URINE NITRITE - DIPSTICK NEGATIVE (Negative); URINE PROTEIN - DIPSTICK NEGATIVE (NEG-TRACE); URINE UROBILINOGEN - DIPSTICK 0.2 E.U./dL (0.2)
[2020-06-20 10:55] LABS: ANION GAP 11 (6-22 (CALC)); BUN 11 mg/dL (8-23); BUN/CREATININE RATIO 15 (12-20 (CALC)); CARBON DIOXIDE 35 mmol/l (22-30); CHLORIDE 93 mmol/l (95-108); CREATININE 0.8 mg/dL (0.5-1.0); GFR > 60 ML/MIN (>=60 (CALC)); GFR FOR AFR.AMER. > 60 ML/MIN (>=60 (CALC)); POTASSIUM 4.4 mmol/l (3.5-5.1); SODIUM 134 mmol/l (137-146)
[2020-06-20 11:01] LABS: HEMATOCRIT 40.2 % (37.0-47.0); HEMOGLOBIN 11.8 g/dl (12.0-16.0); IMMATURE GRANULOCYTES 0.4 % (0.0-5.0); MEAN CELL VOLUME 81.7 fL CALC (80.0-100.0); MEAN CORPUSCULAR HGB CONC 29.4 g/dL CAL (32.0-36.0); NEUT# 2.44 thou/uL (2.00-7.15); RED BLOOD COUNT 4.92 mill/uL (4.20-5.60)
[2020-06-20] MEDS ORDERED: NORCO1 TA1 PO (11:50)
[2020-06-20] MEDS ORDERED: TAMSULOSIN0.4 MG PO ×4 (11:50→11:52)
[2020-06-20] MEDS ORDERED: ZOFRAN4 MG/TAB PO ×4 (11:50→11:52)
[2020-06-20 12:20] VITALS: BP 115/56
[2020-06-20] MEDS ORDERED: TRULICITY1.5 MG/0.5 SC (12:37)
[2020-06-20] MEDS ORDERED: HUMALOG JU100 UNIT/M SC (12:39)
[2020-06-20] MEDS ORDERED: LANTUS SOL100 UNIT/M SC (12:40)
[2020-06-20] MEDS ORDERED: TOPROL XL100 MG PO (12:50)
[2020-06-20] MEDS ORDERED: CLOBETASOL0.053 EX (12:55)
[2020-06-20] MEDS ORDERED: TALTZ80 MG/M1 SC (12:56)
--- NOTE | 2020-06-24 08:47 | NUR ---
Notified patient of positive Covid results. Patient c/o "low grade fever" and occasional SOB. Advised patient to quarantine until [facility] contacts her with further instructions. Advised patient to return to the ED with increase in SOB or any other difficulty breathing. Patient verbalized understanding.
[2020-08-26] MEDS ORDERED: METOPROLOL SUCC50 MG PO (11:32)
[2020-08-26] MEDS ORDERED: VITAMIN D32000 UNIT PO (11:33)
[2020-08-26] MEDS ORDERED: CLOTRIMAZOLE10 MG MT (11:34)
[2020-08-26] MEDS ORDERED: HYDROCO/APAP1 T13 PO (11:35)
[2020-08-26] MEDS ORDERED: BANOPHEN25 M1 PO (11:36)
== END 2020-06-20 12:20 | disposition home or self-care (01) ==
LOC: ED 09:56
PROVIDERS: Student in an Organized Health Care Education/Training Program
DX: U07.1 COVID-19 (principal); N20.2 Calculus of kidney with calculus of ureter; I10 Essential (primary) hypertension; E11.9 Type 2 diabetes mellitus without complications; Z79.4 Long term (current) use of insulin

== ENCOUNTER 2020-08-12 21:30 | Emergency (ER) | payer MEDICARE, MEDICAID ==
[~2020-08-12] VITALS: Ht 157.5 cm; Wt 118.0 kg
[~2020-08-12 21:30] MED LIST changes: +CLOBETASOL0.053 EX; +HUMALOG JU100 UNIT/M SC; +NORCO1 TA1 PO; +TOPROL XL100 MG PO; +TRULICITY1.5 MG/0.5 SC; +ZOFRAN4 MG/TAB PO
[2020-08-12 21:57] LABS: URINE BILIRUBIN - DIPSTICK NEGATIVE (NEGATIVE); URINE BLOOD DIPSTICK LARGE (NEGATIVE); URINE COLOR RED; URINE GLUCOSE - DIPSTICK NEGATIVE (NEGATIVE); URINE KETONE TRACE mg/dL (NEGATIVE); URINE PH 5.5 (4.5-8.0); URINE PROTEIN - DIPSTICK 100 mg/dL (NEG-TRACE); URINE SPECIFIC GRAVITY 1.025
[2020-08-12 22:04] LABS: URINE LEUK ESTERASE SMALL (NEGATIVE); URINE NITRITE - DIPSTICK POSITIVE (Negative)
[2020-08-12 22:05] LABS: URINE RBC TNTC RBC/hpf (0-5); URINE SQUAMOUS EPITHELIAL CELL FEW EPI/hpf (0-FEW)
[2020-08-12 22:11] LABS: HEMATOCRIT 37.9 % (37.0-47.0); HEMOGLOBIN 11.3 g/dl (12.0-16.0); IMMATURE GRANULOCYTES 0.3 % (0.0-5.0); MEAN CELL VOLUME 82.9 fL CALC (80.0-100.0); MEAN CORPUSCULAR HGB 24.7 pG CALC (26.0-32.0); MEAN CORPUSCULAR HGB CONC 29.8 g/dL CAL (32.0-36.0); NEUT# 5.3 thou/uL (2.00-7.15); RED BLOOD COUNT 4.57 mill/uL (4.20-5.60); RED CELL DISTRI WIDTH 17.8 % (11.5-15.5)
[2020-08-12 22:29] LABS: ALBUMIN 3.8 g/dL (3.2-5.0); ALKALINE PHOSPHATASE 88 u/l (38-126); ANION GAP 12 (6-22 (CALC)); BILIRUBIN, TOTAL 0.3 mg/dL (0.0-1.4); BUN 14 mg/dL (8-23); BUN/CREATININE RATIO 21 (12-20 (CALC)); CHLORIDE 102 mmol/l (95-108); CREATININE 0.7 mg/dL (0.5-1.0); GFR > 60 ML/MIN (>=60 (CALC)); GFR FOR AFR.AMER. > 60 ML/MIN (>=60 (CALC)); POTASSIUM 4.1 mmol/l (3.5-5.1); SGOT/AST 38 u/l (9-36); SODIUM 137 mmol/l (137-146); TOTAL PROTEIN 7.1 g/dL (6.3-8.2)
[2020-08-12 22:41] LABS: CARBON DIOXIDE 27 mmol/l (22-30)
[2020-08-12] MEDS ORDERED: ULTRAM50 MG PO ×2 (23:10→23:35)
[2020-08-12] MEDS ORDERED: BACTRIM DS1 TAB PO ×2 (23:10)
[2020-08-12 23:48] VITALS: BP 113/56
[2020-08-26] MEDS ORDERED: METOPROLOL SUCC50 MG PO (11:32)
[2020-08-26] MEDS ORDERED: VITAMIN D32000 UNIT PO (11:33)
[2020-08-26] MEDS ORDERED: CLOTRIMAZOLE10 MG MT (11:34)
[2020-08-26] MEDS ORDERED: HYDROCO/APAP1 T13 PO (11:35)
[2020-08-26] MEDS ORDERED: BANOPHEN25 M1 PO (11:36)
== END 2020-08-13 00:02 | disposition home or self-care (01) ==
LOC: ED 21:30
DX: N20.0 Calculus of kidney (principal); N39.0 Urinary tract infection, site not specified; I10 Essential (primary) hypertension; E11.9 Type 2 diabetes mellitus without complications; Z79.4 Long term (current) use of insulin; Z87.442 Personal history of urinary calculi

== ENCOUNTER 2020-09-02 09:22 | Day surgery (SDC) | payer MEDICARE, MEDICAID ==
[~2020-09-02 09:22] MED LIST changes: +BACTRIM DS1 TAB PO; +BANOPHEN25 M1 PO; +CLOTRIMAZOLE10 MG MT; +HYDROCO/APAP1 T13 PO; +METOPROLOL SUCC50 MG PO; +ULTRAM50 MG PO; +VITAMIN D32000 UNIT PO
--- NOTE | 2020-09-02 11:22 | NUR ---
PER DR GOODMAN I SUBMITTED ORDER TO PHYSICAL THERAPY FOR VIDEO SWALLOW STUDY.
[2020-09-02 11:27] VITALS: BP 150/84
== END 2020-09-02 11:21 | disposition home or self-care (01) ==
LOC: ENDO 09:22
PROVIDERS: ATTEND Surgery
PROC: 0DJ08ZZ Inspection of Upper Intestinal Tract, Via Natural or Artificial Opening Endoscopic (ICD-10-PCS; principal; 2020-09-02)
DX: K29.70 Gastritis, unspecified, without bleeding (principal); K31.4 Gastric diverticulum; T18.2XXA Foreign body in stomach, initial encounter; I10 Essential (primary) hypertension; E11.9 Type 2 diabetes mellitus without complications; X58.XXXA Exposure to other specified factors, initial encounter; Z79.4 Long term (current) use of insulin; Z20.828 Contact with and (suspected) exposure to other viral communicable diseases

== ENCOUNTER 2021-01-16 09:35 | Observation (INO) | payer MEDICARE, MEDICAID ==
[~2021-01-16] VITALS: Ht 157.5 cm; Wt 109.1 kg
[2021-01-16 10:34] LABS: HEMATOCRIT 40.2 % (37.0-47.0); IMMATURE GRANULOCYTES 0.4 % (0.0-5.0); MEAN CELL VOLUME 82.9 fL CALC (80.0-100.0); MEAN CORPUSCULAR HGB 24.7 pG CALC (26.0-32.0); MEAN CORPUSCULAR HGB CONC 29.9 g/dL CAL (32.0-36.0); NEUT# 6.2 thou/uL (2.00-7.15); RED BLOOD COUNT 4.85 mill/uL (4.20-5.60); RED CELL DISTRI WIDTH 16.8 % (11.5-15.5)
[2021-01-16 10:51] LABS: D-DIMER 0.77 mg/L (0.19-0.60)
[2021-01-16 10:52] LABS: ALBUMIN 4.3 g/dL (3.2-5.0); ALKALINE PHOSPHATASE 90 u/l (38-126); AMYLASE 54 u/l (30-110); ANION GAP 14 (6-22 (CALC)); BILIRUBIN, TOTAL 0.5 mg/dL (0.0-1.4); BUN 15 mg/dL (8-23); BUN/CREATININE RATIO 18 (12-20 (CALC)); CARBON DIOXIDE 31 mmol/l (22-30); CHLORIDE 98 mmol/l (95-108); CREATININE 0.8 mg/dL (0.5-1.0); GFR > 60 ML/MIN (>=60 (CALC)); GFR FOR AFR.AMER. > 60 ML/MIN (>=60 (CALC)); LIPASE 91 u/l (23-300); POTASSIUM 4.3 mmol/l (3.5-5.1); SGOT/AST 36 u/l (9-36); SODIUM 138 mmol/l (137-146); TOTAL PROTEIN 8.2 g/dL (6.3-8.2)
[2021-01-16 10:59] LABS: PROTHROMBIN TIME 9.6 SECONDS (9.0-12.5)
[2021-01-16] MEDS ORDERED: NITROGLYCERIN0.4 MG SL (12:40)
[2021-01-16] MEDS ORDERED: TRAMADOL HCL50 MG PO (13:04)
[2021-01-16 14:28] VITALS: BP 159/88
[2021-01-16 20:00] VITALS: BP 131/71
[2021-01-16 23:50] VITALS: BP 155/70
[2021-01-17 03:50] VITALS: BP 125/76
[2021-01-17 04:13] LABS: CHOLESTEROL HDL RATIO 2.6 (<4.4 (CALC)); MAGNESIUM 2.2 mg/dL (1.6-2.3)
[2021-01-17 08:10] VITALS: BP 179/72
[2021-01-17 11:30] VITALS: BP 133/69
== END 2021-01-17 13:30 | disposition home or self-care (01) ==
LOC: ED 09:35 → MS2 12:16 → ED 13:34 → MS2 01-17 13:30
PROVIDERS: ADMIT Internal Medicine; ATTEND Internal Medicine
DX: R07.9 Chest pain, unspecified (principal); R13.10 Dysphagia, unspecified; I10 Essential (primary) hypertension; E11.9 Type 2 diabetes mellitus without complications; I20.9 Angina pectoris, unspecified; I34.1 Nonrheumatic mitral (valve) prolapse; E03.9 Hypothyroidism, unspecified; E78.5 Hyperlipidemia, unspecified; M79.7 Fibromyalgia; F41.9 Anxiety disorder, unspecified; F31.9 Bipolar disorder, unspecified; Z79.4 Long term (current) use of insulin; Z86.73 Personal history of transient ischemic attack (TIA), and cerebral infarction without residual deficits; Z87.891 Personal history of nicotine dependence; Z20.822 Contact with and (suspected) exposure to COVID-19

== ENCOUNTER 2021-10-28 11:13 | Emergency (ER) | payer MEDICARE, MEDICAID ==
[~2021-10-28] VITALS: Ht 157.5 cm; Wt 113.6 kg
[~2021-10-28 11:13] MED LIST changes: +NITROGLYCERIN0.4 MG SL
[2021-10-28 12:21] LABS: HEMATOCRIT 41.9 % (37.0-47.0); HEMOGLOBIN 12.8 g/dl (12.0-16.0); IMMATURE GRANULOCYTES 0.1 % (0.0-5.0); MEAN CELL VOLUME 82.3 fL CALC (80.0-100.0); MEAN CORPUSCULAR HGB 25.1 pG CALC (26.0-32.0); MEAN CORPUSCULAR HGB CONC 30.5 g/dL CAL (32.0-36.0); NEUT# 8.25 thou/uL (2.00-7.15); RED BLOOD COUNT 5.09 mill/uL (4.20-5.60)
[2021-10-28 12:23] LABS: ALBUMIN 3.9 g/dL (3.2-5.0); ALKALINE PHOSPHATASE 105 u/l (38-126); ANION GAP 15 (6-22 (CALC)); BILIRUBIN, TOTAL 0.7 mg/dL (0.0-1.4); BUN 14 mg/dL (8-23); BUN/CREATININE RATIO 16 (12-20 (CALC)); CARBON DIOXIDE 33 mmol/l (22-30); CHLORIDE 96 mmol/l (95-108); CREATININE 0.9 mg/dL (0.5-1.0); GFR > 60 ML/MIN (>=60 (CALC)); GFR FOR AFR.AMER. > 60 ML/MIN (>=60 (CALC)); POTASSIUM 4.1 mmol/l (3.5-5.1); SGOT/AST 36 u/l (9-36); SODIUM 139 mmol/l (137-146); TOTAL PROTEIN 7.7 g/dL (6.3-8.2)
[2021-10-28] MEDS ORDERED: LANTUS100 UNIT SC (12:55)
[2021-10-28] MEDS ORDERED: MYRBETRIQ25 MG (12:56)
[2021-10-28 14:24] VITALS: BP 121/66
[2021-10-28] MEDS ORDERED: ROBITUSSIN200 MG/10 PO (14:25)
== END 2021-10-28 14:24 | disposition home or self-care (01) ==
LOC: ED 11:13
PROVIDERS: Emergency Medicine
DX: B34.9 Viral infection, unspecified (principal); E11.9 Type 2 diabetes mellitus without complications; I10 Essential (primary) hypertension; Z79.84 Long term (current) use of oral hypoglycemic drugs; Z20.822 Contact with and (suspected) exposure to COVID-19; Z20.828 Contact with and (suspected) exposure to other viral communicable diseases

== ENCOUNTER 2021-11-03 10:34 | Observation (INO) | payer MEDICARE, MEDICAID ==
[~2021-11-03] VITALS: Ht 157.5 cm; Wt 113.0 kg
[~2021-11-03 10:34] MED LIST changes: +LANTUS100 UNIT SC; +MYRBETRIQ25 MG; +ROBITUSSIN200 MG/10 PO
[2021-11-03 11:03] VITALS: BP 154/86
[2021-11-03 13:02] LABS: HEMATOCRIT 38.9 % (37.0-47.0); HEMOGLOBIN 12.4 g/dl (12.0-16.0); IMMATURE GRANULOCYTES 0.2 % (0.0-5.0); MEAN CELL VOLUME 79.6 fL CALC (80.0-100.0); MEAN CORPUSCULAR HGB 25.4 pG CALC (26.0-32.0); MEAN CORPUSCULAR HGB CONC 31.9 g/dL CAL (32.0-36.0); NEUT# 8.19 thou/uL (2.00-7.15); RED BLOOD COUNT 4.89 mill/uL (4.20-5.60); RED CELL DISTRI WIDTH 15.8 % (11.5-15.5)
[2021-11-03 13:16] LABS: ALBUMIN 3.7 g/dL (3.2-5.0); ALKALINE PHOSPHATASE 97 u/l (38-126); ANION GAP 14 (6-22 (CALC)); BILIRUBIN, TOTAL 0.6 mg/dL (0.0-1.4); BUN 10 mg/dL (8-23); BUN/CREATININE RATIO 16 (12-20 (CALC)); CARBON DIOXIDE 30 mmol/l (22-30); CHLORIDE 98 mmol/l (95-108); CREATININE 0.6 mg/dL (0.5-1.0); GFR > 60 ML/MIN (>=60 (CALC)); GFR FOR AFR.AMER. > 60 ML/MIN (>=60 (CALC)); POTASSIUM 3.7 mmol/l (3.5-5.1); SGOT/AST 33 u/l (9-36); SODIUM 138 mmol/l (137-146); TOTAL PROTEIN 7.5 g/dL (6.3-8.2)
[2021-11-03] MEDS ORDERED: LISINOPRIL2.5 MG PO (14:42)
[2021-11-03] MEDS ORDERED: FLONASE AL50 MCG/ACT IN (14:45)
[2021-11-03 15:00] VITALS: BP 107/69
[2021-11-03 19:00] VITALS: BP 117/71
[2021-11-03 22:51] LABS: URINE BILIRUBIN - DIPSTICK NEGATIVE (NEGATIVE); URINE BLOOD DIPSTICK LARGE (NEGATIVE); URINE COLOR YELLOW; URINE GLUCOSE - DIPSTICK NEGATIVE (NEGATIVE); URINE KETONE NEGATIVE (NEGATIVE); URINE PH 7.5 (4.5-8.0); URINE PROTEIN - DIPSTICK NEGATIVE (NEG-TRACE); URINE UROBILINOGEN - DIPSTICK 0.2 E.U./dL (0.2)
[2021-11-03 23:20] LABS: URINE LEUK ESTERASE SMALL (NEGATIVE); URINE NITRITE - DIPSTICK NEGATIVE (Negative)
[2021-11-03 23:36] LABS: URINE BACTERIA FEW hpf; URINE RBC 25-50 RBC/hpf (0-5); URINE SQUAMOUS EPITHELIAL CELL FEW EPI/hpf (0-FEW)
[2021-11-04] VITALS: BP 105/63
[2021-11-04 04:00] VITALS: BP 108/66
[2021-11-04 05:56] LABS: HEMATOCRIT 38.4 % (37.0-47.0); MEAN CELL VOLUME 80.7 fL CALC (80.0-100.0); MEAN CORPUSCULAR HGB 25.2 pG CALC (26.0-32.0); MEAN CORPUSCULAR HGB CONC 31.3 g/dL CAL (32.0-36.0); RED BLOOD COUNT 4.76 mill/uL (4.20-5.60)
[2021-11-04 06:16] LABS: ANION GAP 12 (6-22 (CALC)); BUN 9 mg/dL (8-23); BUN/CREATININE RATIO 13 (12-20 (CALC)); CARBON DIOXIDE 33 mmol/l (22-30); CHLORIDE 98 mmol/l (95-108); CREATININE 0.7 mg/dL (0.5-1.0); GFR > 60 ML/MIN (>=60 (CALC)); GFR FOR AFR.AMER. > 60 ML/MIN (>=60 (CALC)); POTASSIUM 3.5 mmol/l (3.5-5.1); SODIUM 139 mmol/l (137-146)
[2021-11-04 07:51] VITALS: BP 137/80
[2021-11-04 10:34] VITALS: BP 122/73
[2021-11-04] MEDS ORDERED: KEFLEX500 MG PO (12:13)
[2021-11-04] MEDS ORDERED: TESSALON PERLE100 MG PO (12:14)
[2021-11-04 14:22] VITALS: BP 118/77
== END 2021-11-04 16:05 | disposition home or self-care (01) ==
LOC: MS2 10:34
PROVIDERS: Nurse Practitioner; ADMIT Internal Medicine; ATTEND Hospitalist
DX: J06.9 Acute upper respiratory infection, unspecified (principal); B97.4 Respiratory syncytial virus as the cause of diseases classified elsewhere; N39.0 Urinary tract infection, site not specified; E11.9 Type 2 diabetes mellitus without complications; I10 Essential (primary) hypertension; E03.9 Hypothyroidism, unspecified; I34.1 Nonrheumatic mitral (valve) prolapse; M79.7 Fibromyalgia; F41.9 Anxiety disorder, unspecified; F31.9 Bipolar disorder, unspecified; M54.50 Low back pain, unspecified; G89.29 Other chronic pain; M19.90 Unspecified osteoarthritis, unspecified site; Z86.73 Personal history of transient ischemic attack (TIA), and cerebral infarction without residual deficits; Z87.891 Personal history of nicotine dependence; Z20.822 Contact with and (suspected) exposure to COVID-19
CPT/HCPCS: G0378; Q9967

== ENCOUNTER 2022-05-30 17:10 | Emergency (ER) | payer MEDICARE, MEDICAID ==
[2022-05-30] VITALS (9 sets, daily range): BP systolic 106–132; BP diastolic 45–78
[~2022-05-30] VITALS: Ht 157.5 cm; Wt 114.0 kg
[~2022-05-30 17:10] MED LIST changes: +FLONASE AL50 MCG/ACT IN; +KEFLEX500 MG PO; +LISINOPRIL2.5 MG PO; +TESSALON PERLE100 MG PO
[2022-05-30 17:36] LABS: HEMATOCRIT 37.4 % (37.0-47.0); HEMOGLOBIN 11.6 g/dl (12.0-16.0); IMMATURE GRANULOCYTES 0.2 % (0.0-5.0); MEAN CELL VOLUME 82.2 fL CALC (80.0-100.0); MEAN CORPUSCULAR HGB 25.5 pG CALC (26.0-32.0); NEUT# 8.57 thou/uL (2.00-7.15); RED BLOOD COUNT 4.55 mill/uL (4.20-5.60); RED CELL DISTRI WIDTH 15.7 % (11.5-15.5)
[2022-05-30 17:44] LABS: ALBUMIN 3.9 g/dL (3.2-5.0); ALKALINE PHOSPHATASE 86 u/l (38-126); ANION GAP 11 (6-22 (CALC)); BILIRUBIN, TOTAL 0.5 mg/dL (0.0-1.4); BUN 14 mg/dL (8-23); BUN/CREATININE RATIO 17 (12-20 (CALC)); CARBON DIOXIDE 31 mmol/l (22-30); CHLORIDE 99 mmol/l (95-108); CREATININE 0.8 mg/dL (0.5-1.0); GFR FOR AFR.AMER. > 60 ML/MIN (>=60 (CALC)); GFR OTHER RACES > 60 ML/MIN (>=60 (CALC)); POTASSIUM 4.5 mmol/l (3.5-5.1); SGOT/AST 41 u/l (9-36); SODIUM 136 mmol/l (137-146); TOTAL PROTEIN 7.8 g/dL (6.3-8.2)
[2022-05-30 17:56] LABS: MYOGLOBIN 40 ng/mL (0 - 62)
[2022-05-30 18:14] LABS: TSH, 3RD GENERATION 0.03 uIU/mL (0.47 - 4.68)
[2022-05-30 18:26] LABS: URINE BILIRUBIN - DIPSTICK NEGATIVE (NEGATIVE); URINE BLOOD DIPSTICK TRACE-LYSED (NEGATIVE); URINE GLUCOSE - DIPSTICK NEGATIVE (NEGATIVE); URINE KETONE NEGATIVE (NEGATIVE); URINE PROTEIN - DIPSTICK NEGATIVE (NEG-TRACE); URINE UROBILINOGEN - DIPSTICK 0.2 E.U./dL (0.2)
[2022-05-30 18:28] LABS: URINE COLOR STRAW; URINE LEUK ESTERASE SMALL (NEGATIVE); URINE NITRITE - DIPSTICK NEGATIVE (Negative)
[2022-05-30 18:35] LABS: URINE RBC 0-2 RBC/hpf (0-5); URINE SQUAMOUS EPITHELIAL CELL FEW EPI/hpf (0-FEW)
[2022-05-30] MEDS ORDERED: CIPROFLOXACN500 MG PO (18:38)
== END 2022-05-30 19:05 | disposition home or self-care (01) ==
LOC: ED 17:10
PROVIDERS: Emergency Medicine
DX: I49.1 Atrial premature depolarization (principal); E03.9 Hypothyroidism, unspecified; N39.0 Urinary tract infection, site not specified; I10 Essential (primary) hypertension; E11.9 Type 2 diabetes mellitus without complications; Z79.4 Long term (current) use of insulin

== ENCOUNTER 2022-06-30 14:19 | Observation (INO) | payer MEDICARE, MEDICAID ==
[2022-06-30] VITALS (22 sets, daily range): BP systolic 95–130; BP diastolic 33–80
[~2022-06-30] VITALS: Ht 157.5 cm; Wt 110.0 kg
[~2022-06-30 14:19] MED LIST changes: -METOPROLOL SUCC50 MG PO; +TOPROL XL25 M1 PO
[2022-06-30] MEDS ORDERED: LEVOTHYROXIN75 MC1 PO (15:07)
[2022-06-30] MEDS ORDERED: PLAVIX75 MG PO (15:07)
[2022-06-30] MEDS ORDERED: TRAZODONE50 MG PO (15:08)
[2022-06-30] MEDS ORDERED: [UNRECOGNIZED DRUG - OTHER] PO (15:09)
[2022-06-30] MEDS ORDERED: LORAZEPAM0.5 MG PO (15:10)
[2022-06-30 15:16] LABS: HEMOGLOBIN 11.3 g/dl (12.0-16.0); IMMATURE GRANULOCYTES 0.2 % (0.0-5.0); MEAN CORPUSCULAR HGB 25.3 pG CALC (26.0-32.0); MEAN CORPUSCULAR HGB CONC 30.5 g/dL CAL (32.0-36.0); NEUT# 5.85 thou/uL (2.00-7.15); RED BLOOD COUNT 4.46 mill/uL (4.20-5.60); RED CELL DISTRI WIDTH 16.1 % (11.5-15.5)
[2022-06-30 15:34] LABS: INTERNATIONAL NORMALIZED RATIO 0.9 RATIO (0.7-1.3); PROTHROMBIN TIME 9.8 SECONDS (9.0-12.5)
[2022-06-30 15:40] LABS: ALBUMIN 3.8 g/dL (3.2-5.0); ALKALINE PHOSPHATASE 88 u/l (38-126); AMYLASE 65 u/l (30-110); ANION GAP 12 (6-22 (CALC)); BILIRUBIN, TOTAL 0.5 mg/dL (0.0-1.4); BUN 13 mg/dL (8-23); BUN/CREATININE RATIO 15 (12-20 (CALC)); CARBON DIOXIDE 31 mmol/l (22-30); CHLORIDE 100 mmol/l (95-108); CREATININE 0.8 mg/dL (0.5-1.0); GFR FOR AFR.AMER. > 60 ML/MIN (>=60 (CALC)); GFR OTHER RACES > 60 ML/MIN (>=60 (CALC)); LIPASE 95 u/l (23-300); POTASSIUM 4.2 mmol/l (3.5-5.1); SGOT/AST 50 u/l (9-36); SODIUM 139 mmol/l (137-146); TOTAL PROTEIN 7.5 g/dL (6.3-8.2)
[2022-06-30 15:49] LABS: MYOGLOBIN 32 ng/mL (0 - 62)
[2022-06-30 17:00] LABS: URINE BILIRUBIN - DIPSTICK NEGATIVE (NEGATIVE); URINE BLOOD DIPSTICK TRACE-INTACT (NEGATIVE); URINE COLOR YELLOW; URINE GLUCOSE - DIPSTICK NEGATIVE (NEGATIVE); URINE KETONE NEGATIVE (NEGATIVE); URINE LEUK ESTERASE TRACE (NEGATIVE); URINE PH 6.5 (4.5-8.0); URINE PROTEIN - DIPSTICK NEGATIVE (NEG-TRACE); URINE UROBILINOGEN - DIPSTICK 0.2 E.U./dL (0.2)
[2022-06-30 17:01] LABS: URINE NITRITE - DIPSTICK NEGATIVE (Negative)
[2022-07-01] VITALS (9 sets, daily range): BP systolic 88–124; BP diastolic 34–71
[2022-07-01 06:20] LABS: HEMOGLOBIN 10.9 g/dl (12.0-16.0); IMMATURE GRANULOCYTES 0.1 % (0.0-5.0); MEAN CELL VOLUME 83.9 fL CALC (80.0-100.0); MEAN CORPUSCULAR HGB 25.4 pG CALC (26.0-32.0); MEAN CORPUSCULAR HGB CONC 30.3 g/dL CAL (32.0-36.0); NEUT# 4.59 thou/uL (2.00-7.15); RED BLOOD COUNT 4.29 mill/uL (4.20-5.60); RED CELL DISTRI WIDTH 16.2 % (11.5-15.5)
[2022-07-01 07:10] LABS: ALKALINE PHOSPHATASE 84 u/l (38-126); ANION GAP 8 (6-22 (CALC)); BILIRUBIN, TOTAL 0.3 mg/dL (0.0-1.4); BUN 12 mg/dL (8-23); BUN/CREATININE RATIO 15 (12-20 (CALC)); CARBON DIOXIDE 31 mmol/l (22-30); CHLORIDE 105 mmol/l (95-108); CREATININE 0.8 mg/dL (0.5-1.0); GFR FOR AFR.AMER. > 60 ML/MIN (>=60 (CALC)); GFR OTHER RACES > 60 ML/MIN (>=60 (CALC)); MAGNESIUM 2.2 mg/dL (1.6-2.3); POTASSIUM 3.7 mmol/l (3.5-5.1); SGOT/AST 39 u/l (9-36); SODIUM 141 mmol/l (137-146)
== END 2022-07-01 11:29 | disposition home health service (06) ==
LOC: ED 14:19 → ED-I 16:25 → ED 17:38 → MS2 17:39
PROVIDERS: Internal Medicine; Nurse Practitioner; ADMIT Internal Medicine; ATTEND Internal Medicine
DX: R07.9 Chest pain, unspecified (principal); I10 Essential (primary) hypertension; E11.40 Type 2 diabetes mellitus with diabetic neuropathy, unspecified; I25.119 Atherosclerotic heart disease of native coronary artery with unspecified angina pectoris; E03.9 Hypothyroidism, unspecified; M79.7 Fibromyalgia; I34.1 Nonrheumatic mitral (valve) prolapse; F41.9 Anxiety disorder, unspecified; F31.9 Bipolar disorder, unspecified; Z79.4 Long term (current) use of insulin; Z87.442 Personal history of urinary calculi; Z87.891 Personal history of nicotine dependence; Z86.73 Personal history of transient ischemic attack (TIA), and cerebral infarction without residual deficits; Z20.822 Contact with and (suspected) exposure to COVID-19

== ENCOUNTER 2022-07-06 15:40 | Observation (INO) | payer MEDICARE, MEDICAID ==
[~2022-07-06] VITALS: Ht 157.5 cm; Wt 125.0 kg
[~2022-07-06 15:40] MED LIST changes: +LEVOTHYROXIN75 MC1 PO; +LORAZEPAM0.5 MG PO; +PLAVIX75 MG PO; +[UNRECOGNIZED DRUG - OTHER] PO
--- NOTE | 2022-07-06 15:40 | NUR ---
PT TO ROOM VIA EMS
[2022-07-06 15:45] VITALS: BP 166/92
[2022-07-06 16:12] LABS: HEMATOCRIT 39.9 % (37.0-47.0); HEMOGLOBIN 12.3 g/dl (12.0-16.0); IMMATURE GRANULOCYTES 0.2 % (0.0-5.0); MEAN CELL VOLUME 81.1 fL CALC (80.0-100.0); MEAN CORPUSCULAR HGB CONC 30.8 g/dL CAL (32.0-36.0); NEUT# 7.43 thou/uL (2.00-7.15); RED BLOOD COUNT 4.92 mill/uL (4.20-5.60); RED CELL DISTRI WIDTH 16.4 % (11.5-15.5)
[2022-07-06 16:22] LABS: ALKALINE PHOSPHATASE 88 u/l (38-126); ANION GAP 15 (6-22 (CALC)); BUN 12 mg/dL (8-23); BUN/CREATININE RATIO 16 (12-20 (CALC)); CARBON DIOXIDE 26 mmol/l (22-30); CHLORIDE 100 mmol/l (95-108); CREATININE 0.8 mg/dL (0.5-1.0); GFR FOR AFR.AMER. > 60 ML/MIN (>=60 (CALC)); GFR OTHER RACES > 60 ML/MIN (>=60 (CALC)); POTASSIUM 4.1 mmol/l (3.5-5.1); SODIUM 137 mmol/l (137-146)
[2022-07-06 16:29] LABS: ALBUMIN 4.1 g/dL (3.2-5.0); BILIRUBIN, TOTAL 0.6 mg/dL (0.0-1.4); SGOT/AST 72 u/l (9-36); TOTAL PROTEIN 8.1 g/dL (6.3-8.2)
--- NOTE | 2022-07-06 16:40 | NUR ---
Reassessment of patient completed. No distress noted.
--- NOTE | 2022-07-06 17:15 | NUR ---
Reassessment of patient completed. No distress noted.
[2022-07-06] MEDS ORDERED: MYRBETRIQ25 MG PO (18:00)
[2022-07-06] MEDS ORDERED: CLOPIDOGREL75 MG PO (18:01)
[2022-07-06] MEDS ORDERED: ASPIRIN81 MG PO (18:02)
[2022-07-06] MEDS ORDERED: TALTZ80 MG/M1 SC (18:04)
--- NOTE | 2022-07-06 18:32 | NUR ---
MED SURG REQUESTS RN TO HOLD PT IN ER UNTIL RECOVERY COORDINATOR. PROVIDER AWARE, COMMODITIES TRADER AWARE
--- NOTE | 2022-07-06 18:32 | NUR ---
Reassessment of patient completed. No distress noted.
--- NOTE | 2022-07-06 19:45 | NUR ---
REPORT TO DWAIN PEACE
--- NOTE | 2022-07-06 19:45 | NUR ---
PT DECLINES TRANSFER TO FLOOR UNTIL DAUGHTER GETS TO HOSPITAL.
--- NOTE | 2022-07-06 20:00 | NUR ---
PT. REPORT CALED TO FLOOR RE:ADMIT. PT. DAUGHTER AT BEDSIDE, AVISES THIS RN THAT HER MOTHER IS UPSET STATES "I CALLED THE NURSES STATION 30 MINUTES AGO AND WAS TOLD SOMEONE WOULD COME HELP ME UP TO THE BR AND NO ONE CAME, I HAD TO CRAWL OVER THE BEDRAIL". CHARGED NURSE AWARE APOLOGIZED TO PT., DAUGHTER REQUESTED TO SPEAK WITH FURNITURE BUILDER RE: MOTHER BEING UPSET." CHRISTOPHER, NURSING FURNITURE BUILDER ADVISED AND IN ROOM TO SPEAK WITH PT. AND FAMILY. PT. ASSISTED UP TO TELE APPLIED AND TRANSPORTED TO 262 WITHOUT FURTHER INCIDENT. PT. DENIES C/O PAIN AND DISCOMFORT AT PRESENT
[2022-07-06 20:37] VITALS: BP 160/91
--- NOTE | 2022-07-06 22:00 | NUR ---
PATIENT ADMITTED FROM ER VIA WHEELCHAIR WITH ER STAFF IN ATTENDANCE. PATIENT IS ABLE TO TRANSFER TO BED HERSELF. PATIENT IS BEING ADMITTED FOR CHEST PAIN-STATES THAT SHE IS FEELING BETTER NOW. AWAKE ALERT AND ORIENTEDX3. PATIENT IS KNOWN DIAB-GLUCOSE MONITOR IS 84 AT THIS TIME. LEVEMIR HELD AND NO SS HUMALOG COVERAGE REQUIRED. PATIENT STATES THAT SHE DID HAVE STROKE A FEW WEEKS AGO AND IS CURRENTLY RECEIVING HOME HEALTH WIOTH OT AND PT SERVICES. PATIENT WITH SLIGHT RIGHT SIDE WEAKNESS NOTED. SLIGHT FACIAL DROOP. AMB WITH WALKER. LIVES ALONE-DAUGHTER AND SON ARE BOTH LOCAL. TELE MONTOR IN PLACE AND CURRENTLY READING SR-70'S. LUNGS ARE CLEAR. ABD IS SOFT WITH ACTIVE BS. LAST BM WAS TODAY. VOIDS WITHOUT ANY DIFFICULTY EXCEPT OCC LEAKAGE THAT SHE WEARS THIN PERIPAD FOR PROTECTION. NO PERIPHERAL EDEMA NOTED. PULSES ARE PALPABLE. ORIENTED PATIENT TO ROOM AND SURROUNDINGS. INSTRUCTED ON USE OF NURSE CALL LIGHT AND TV REMOTE. PROVIDED WITH TURKEY WRAP AND DRINK. SAFETY PRECAUTIONS RFEINFORCED. CALL LIGHT IN REACH. WILL CONT TO MONITOR.
[2022-07-06 22:20] VITALS: BP 171/84
[2022-07-06 22:23] VITALS: BP 171/84
--- NOTE | 2022-07-06 22:23 | NUR ---
PATIENT SITTING UP IN BED-C/O "HEART FEELS LIKE IT IS QUIVERING". COLOR IS GOOD. SKIN IS WARM AND DRY. TELE MONITOR SHOWS-SR 60'S. VS TAKEN AND BP-171/84, HR-69, O2 SAT IS 95% ON RA. CALLED FOR STAT EKG. WILL CONT TO MONITOR.
--- NOTE | 2022-07-06 23:45 | NUR ---
PATIENT CONT TO C/O CHEST PRESSURE THAT GOES TO HER LEFT NECK AND LEFT ARM. TROP WAS DRAWN AND WAS NEG-0.012. DR. ARMSTRONG CALLED AND LORAZEPAM ORDER CLARIFIED-WILL MEDICATE SOON PROFILED ON EMAR. WILL CONT TO MONITOR.
--- NOTE | 2022-07-07 | NUR ---
PATIENT RESTING IN BED-MEDICATED WITH ATIVAN 0.5MG PO FOR ANXIETY AND SLEEP. TROP WAS NEG. SAFETY PRECAUTIONS REINFORCED. CALL LIGHT IN REACH. WILL CONT TO SILVIA.
[2022-07-07 00:09] VITALS: BP 139/76
--- NOTE | 2022-07-07 02:27 | NUR ---
RESTING IN BED-STATES THAT SHE DID FALL ASLEEP FOR A LITTLE WHILE. TELE MONITOR IN PLACE. CALL LIGHT IN REACH. WILL CONT TO SILVIA.
[2022-07-07 04:42] VITALS: BP 145/81
--- NOTE | 2022-07-07 05:50 | NUR ---
PATIENT RESTING IN BED-AWAKE ALERT ABD ORIENTEDX3. NO COMPLAINTS AT THIS TIME. MEDICATED WITH SYNTHROID ORDERED. TELE MONITOR IN PLACE WITH LAST READING SR-71. SALINE LOCK TO LEFT HAND INTACT. SAFETY PRECAUTIONS REINFORCED. CALL LIGHT IN REACH. WILL CONT TO MONITOR.
[2022-07-07 06:19] VITALS: BP 133/78
[2022-07-07 06:50] LABS: HEMATOCRIT 36.3 % (37.0-47.0); HEMOGLOBIN 11.3 g/dl (12.0-16.0); IMMATURE GRANULOCYTES 0.1 % (0.0-5.0); MEAN CELL VOLUME 81.8 fL CALC (80.0-100.0); MEAN CORPUSCULAR HGB 25.5 pG CALC (26.0-32.0); MEAN CORPUSCULAR HGB CONC 31.1 g/dL CAL (32.0-36.0); NEUT# 4.92 thou/uL (2.00-7.15); RED BLOOD COUNT 4.44 mill/uL (4.20-5.60); RED CELL DISTRI WIDTH 16.5 % (11.5-15.5)
--- NOTE | 2022-07-07 07:00 | NUR ---
REPORT RECEIVED FROM NORMALIZERDYEING MACHINE FEEDER. PT RESTING IN BED IN SEMI HOLLEY POSTION. BREATHING EVEN AND UNLABORED. TELE MONITOR INPLACE. CONTINOUS MONITORING PER ED. FALL/SAFTEY PRECAUTION IN PLACE. CALL LIGHT WITHIN REACH
[2022-07-07 07:23] LABS: ALBUMIN 3.6 g/dL (3.2-5.0); ALKALINE PHOSPHATASE 73 u/l (38-126); ANION GAP 11 (6-22 (CALC)); BILIRUBIN, TOTAL 0.4 mg/dL (0.0-1.4); BUN 12 mg/dL (8-23); BUN/CREATININE RATIO 15 (12-20 (CALC)); CALCULATED LDLCHOLESTEROL 36 mg/dL (62-129 (CALC)); CARBON DIOXIDE 30 mmol/l (22-30); CHLORIDE 102 mmol/l (95-108); CHOLESTEROL HDL RATIO 2.8 (<4.4 (CALC)); CREATININE 0.8 mg/dL (0.5-1.0); GFR FOR AFR.AMER. > 60 ML/MIN (>=60 (CALC)); GFR OTHER RACES > 60 ML/MIN (>=60 (CALC)); HDL CHOLESTEROL 37 mg/dL (>=40); MAGNESIUM 2.2 mg/dL (1.6-2.3); SGOT/AST 71 u/l (9-36); SODIUM 139 mmol/l (137-146); TOTAL CHOLESTEROL 102 mg/dl (0-199); TOTAL PROTEIN 6.8 g/dL (6.3-8.2); TOTAL TRIGLYCERIDES 146 mg/dl (30-149); VLDL CHOLESTROL 29 mg/dl (1-41 (CALC))
[2022-07-07 07:53] LABS: TSH, 3RD GENERATION 17.7 uIU/mL (0.47 - 4.68)
--- NOTE | 2022-07-07 08:50 | NUR ---
PT RESTING IN BED. ASSESSMENT PERFROMED. PT STATES HEADACHE. CONTINUOUS DRYOUT OPERATOR HELPER NOTIFIED/AWARE. IV LH 22G SL FLUSHED. TELE MONITOR IN PLACE. CONTINOUS MONITORING PER ED. NIH PERFORMED SCORE OF 0. PT VOMITED MEDICATION. MD NOTIFIED/AWARE. FALL/SAFTEY PRECAUTION IN PLACE. CALL LIGHT WITHIN REACH
[2022-07-07] MEDS ORDERED: ACETAMIN500 M2 PO (11:38)
[2022-07-07] MEDS ORDERED: TUMS500 MG PO (11:39)
[2022-07-07] MEDS ORDERED: STOOL SOFTE1 PO (11:39)
--- NOTE | 2022-07-07 12:15 | NUR ---
PT EATING LUNCH. STATES NO NEEDS AT THIS TIME. NO DISTRESS NOTED. IV PATENT. TELE MONITOR IN PLACE. CALL LIGHT WITHIN REACH. FALL/SAFTEY PRECAUTION IN PLACE.
[2022-07-07 15:45] VITALS: BP 131/69
--- NOTE | 2022-07-07 16:31 | NUR ---
PT SITTING IN RECLINER UPON ENTERING ROOM. ANXIOUS TOWARDS DIAGNOSIS AND PAST STROKE. CALMING VERBAL CUES GIVEN. PT CALMED DOWN. STATES NO PAIN. BREATHING EVEN AND UNLABORED. FALL/SAFTEY PRECAUTION IN PLACE. CALL LIGHT WITHIN REACH
--- NOTE | 2022-07-07 16:50 | NUR ---
Discharge instructions given. Patient verbalizes understanding of same. Discharged in stable condition via Wheelchair to Home with staff. All belongings sent with pt.
== END 2022-07-07 16:50 | disposition home health service (06) ==
LOC: ED 15:40 → ED-I 17:04 → ED 17:04 → MS2 17:20
PROVIDERS: Family Medicine; Nurse Practitioner; ADMIT Internal Medicine; ATTEND Internal Medicine
DX: R07.89 Other chest pain (principal); I20.8 Other forms of angina pectoris; I10 Essential (primary) hypertension; E11.9 Type 2 diabetes mellitus without complications; M79.7 Fibromyalgia; E03.9 Hypothyroidism, unspecified; F41.9 Anxiety disorder, unspecified; E66.01 Morbid (severe) obesity due to excess calories; F31.9 Bipolar disorder, unspecified; I34.1 Nonrheumatic mitral (valve) prolapse; Z86.73 Personal history of transient ischemic attack (TIA), and cerebral infarction without residual deficits; Z79.4 Long term (current) use of insulin; Z87.891 Personal history of nicotine dependence; Z68.43 Body mass index [BMI] 50.0-59.9, adult; Z20.822 Contact with and (suspected) exposure to COVID-19
CPT/HCPCS: G0378

== ENCOUNTER 2023-01-19 10:31 | Emergency (ER) | payer MEDICARE, MEDICAID ==
[2023-01-19] VITALS (11 sets, daily range): BP systolic 111–143; BP diastolic 65–77
[~2023-01-19] VITALS: Ht 157.5 cm; Wt 98.0 kg
[~2023-01-19 10:31] MED LIST changes: +ACETAMIN500 M2 PO; +ASPIRIN81 MG PO; +CLOPIDOGREL75 MG PO; +STOOL SOFTE1 PO; +TUMS500 MG PO
[2023-01-19] MEDS ORDERED: ELIQUIS5 MG PO (10:55)
[2023-01-19] MEDS ORDERED: METOPROL TAR25 MG PO (10:56)
[2023-01-19] MEDS ORDERED: GABAPENTIN100 MG PO (10:56)
[2023-01-19] MEDS ORDERED: NYSTAT/TRIA1 EX (10:57)
[2023-01-19] MEDS ORDERED: LORTAB 5/3255 MG PO (15:03)
[2023-01-19] MEDS ORDERED: METHOCARBAMOL500 MG PO (15:03)
[2023-01-19] MEDS ORDERED: MEDDOSEPAK PO (15:03)
== END 2023-01-19 15:40 | disposition home or self-care (01) ==
LOC: ED 10:31
DX: M47.816 Spondylosis without myelopathy or radiculopathy, lumbar region (principal); M47.814 Spondylosis without myelopathy or radiculopathy, thoracic region; I10 Essential (primary) hypertension; E11.9 Type 2 diabetes mellitus without complications; E66.01 Morbid (severe) obesity due to excess calories; F41.9 Anxiety disorder, unspecified; F32.A Depression, unspecified; Z79.4 Long term (current) use of insulin; Z86.73 Personal history of transient ischemic attack (TIA), and cerebral infarction without residual deficits

== ENCOUNTER 2023-02-15 17:36 | Emergency (ER) | payer MEDICARE, MEDICAID ==
[2023-02-15] VITALS (8 sets, daily range): BP systolic 98–127; BP diastolic 56–77
[~2023-02-15] VITALS: Ht 157.5 cm; Wt 96.0 kg
[~2023-02-15 17:36] MED LIST changes: +ELIQUIS5 MG PO; +GABAPENTIN100 MG PO; +LORTAB 5/3255 MG PO; +METHOCARBAMOL500 MG PO; +METOPROL TAR25 MG PO; +NYSTAT/TRIA1 EX
[2023-02-15 18:36] LABS: BASO% 0.2 % (0-3); EOS% 2.2 % (0-8); HEMATOCRIT 37.7 % (37.0-47.0); HEMOGLOBIN 11.6 g/dl (12.0-16.0); IMMATURE GRANULOCYTES 0.2 % (0.0-5.0); LYMPH% 22.4 % (15-41); MEAN CELL VOLUME 84.3 fL CALC (80.0-100.0); MEAN CORPUSCULAR HGB CONC 30.8 g/dL CAL (32.0-36.0); MONO% 9.3 % (2-13); NEUT# 6.85 thou/uL (2.00-7.15); NEUT% 65.7 % (42-76); RED BLOOD COUNT 4.47 mill/uL (4.20-5.60); RED CELL DISTRI WIDTH 15.6 % (11.5-15.5)
[2023-02-15 18:58] LABS: ALBUMIN 4.1 g/dL (3.2-5.0); ALKALINE PHOSPHATASE 103 u/l (38-126); ANION GAP 12 (6-22 (CALC)); BUN 14 mg/dL (8-23); BUN/CREATININE RATIO 18 (12-20 (CALC)); C-REACTIVE PROTEIN 1.1 mg/dL (0-0.9); CARBON DIOXIDE 33 mmol/l (22-30); CHLORIDE 97 mmol/l (95-108); CREATININE 0.8 mg/dL (0.5-1.0); GFR FOR AFR.AMER. > 60 ML/MIN (>=60 (CALC)); GFR OTHER RACES > 60 ML/MIN (>=60 (CALC)); POTASSIUM 3.9 mmol/l (3.5-5.1); SGOT/AST 22 u/l (9-36); SODIUM 138 mmol/l (137-146); TOTAL PROTEIN 7.5 g/dL (6.3-8.2)
[2023-02-15 18:59] LABS: BILIRUBIN, TOTAL 0.2 mg/dL (0.02-1.3)
[2023-02-15] MEDS ORDERED: MEDDOSEPAK PO (20:15)
== END 2023-02-15 20:43 | disposition home or self-care (01) ==
LOC: ED 17:36
PROVIDERS: Nurse Practitioner
DX: M19.012 Primary osteoarthritis, left shoulder (principal); I25.119 Atherosclerotic heart disease of native coronary artery with unspecified angina pectoris; I10 Essential (primary) hypertension; E11.9 Type 2 diabetes mellitus without complications; E66.01 Morbid (severe) obesity due to excess calories; F41.9 Anxiety disorder, unspecified; F32.A Depression, unspecified; Z86.73 Personal history of transient ischemic attack (TIA), and cerebral infarction without residual deficits; Z79.4 Long term (current) use of insulin